=== PATIENT | female | born 1945 | race Caucasian/White ===

== ENCOUNTER 2019-12-22 05:21 | Inpatient (IN) ==
--- NOTE | 2019-12-22 05:49 | PROVIDER DOCUMENTATION ---
HPI-Respiratory General - General Chief Complaint: Shortness of Breath Stated Complaint: sob Time Seen by Provider: 12/22/19 05:37 Source: patient Allergies/Adverse Reactions: Patient Allergies Allergy/AdvReac Type Severity Reaction Status Date / Time buprenorphine HCl * Allergy Intermediate Unknown Verified 12/22/19 06:30 [From Buprenex] meperidine HCl * Allergy Intermediate Unknown Verified 12/22/19 06:30 [From Mepergan] methotrexate Allergy Intermediate Unknown Verified 12/22/19 06:30 promethazine HCl * Allergy Intermediate Unknown Verified 12/22/19 06:30 [From Mepergan] morphine Allergy Mild Unknown Verified 12/22/19 06:30 azathioprine [From Imuran] Allergy Unknown Verified 12/22/19 06:30 azathioprine sodium * Allergy Unknown Verified 12/22/19 06:30 [From Imuran] ketorolac tromethamine * Allergy Unknown Verified 12/22/19 06:30 [From Toradol] triazolam [From Halcion] AdvReac Intermediate Unknown Verified 12/22/19 06:30 Home Medications: Home Medication List Medication Instructions Recorded Confirmed Last Taken Type Sodium Polystyrene Sulfonate 15 gm PO 10/03/13 10/03/13 09/05/13 08:00 History [Kionex] - History of Present Illness-Resp Nature of Presenting Problem: Patient presents via EMS with the complaint of sob x 2-3 days. Notes that she started having a productive cough and sob worsened during the night. Notes subjective fever and chills. No known sick contacts. Quality of Pain: reports: none Severity in ED: reports: moderate Onset/Duration: reports: 3 days ago Timing: reports: getting worse Context: reports: recent URI Exposure: reports: unknown cause Cough Quality/Degree: reports: moderate, productive cough Modifying Factors: improves with: exertion, coughing Associated Symptoms: reports: cough Similar Symptoms Previously?: No Recently seen or treated by another doctor?: No Review of Systems - Adult - REVIEW OF SYSTEMS - ADULT Constitutional: reports: no symptoms reported Eyes: reports: no symptoms reported Ears, Nose, Mouth & Throat: reports: no symptoms reported Cardiovascular: reports: no symptoms reported Respiratory: reports: see HPI Gastrointestinal: reports: no symptoms reported Genitourinary: reports: no symptoms reported Musculoskeletal: reports: no symptoms reported Integumentary: reports: no symptoms reported Neurological: reports: no symptoms reported Psychiatric: reports: no symptoms reported Endocrine: reports: no symptoms reported Hematologic/Lymphatic: reports: no symptoms reported Allergic/Immunologic: reports: no symptoms reported All Other Systems: Reviewed and Negative Past History - Adult - PAST MEDICAL HISTORY-ADULT Review of Records: reports: Old Records Reviewed, Nursing Assessment Review, Medications Reviewed, Social history reviewed & non-contributory. Major Childhood Illnesses: reports: denies history Cardiovascular: reports: arrhythmia Respiratory: reports: denies history Gastrointestinal: reports: Crohn's Obstetrical/Gynecological: reports: denies history Genitourinary: reports: denies history Musculoskeletal: reports: neck/back injury Neurological: reports: denies history Endocrine/Immune: reports: Diabetes Other Conditions: reports: denies history - IMMUNIZATION STATUS Childhood Immunizations: See Nurse Assessment Flu Vaccine: See Nurse Assessment - FAMILY HISTORY Family History: reviewed, not pertinent Physical Exam-General - PHYSICAL EXAM-ADULT Initial Vital Signs Reviewed: Yes - CONSTITUTIONAL General Appearance: alert, moderate distress - EYES Eyes: PERRL/EOMI - HEAD, EARS, NOSE, MOUTH & THROAT HENMT: normocephalic/atraumatic, moist mucous membranes, normal ENT inspection - NECK Neck: non-tender - RESPIRATORY Respiratory: chest non-tender, lungs clear, rales, rhonchi - CARDIOVASCULAR Cardiovascular: tachycardia, irregularly irregular - GASTROINTESTINAL (ABDOMEN) Abdominal Exam: normal bowel sounds, non tender - LYMPHATIC Lymphatic: no adenopathy - MUSCULOSKELETAL Back Exam: no vertebral tenderness Progress - PLAN OF CARE/RESULTS Progress/Plan/Lab Results: Vital Signs - 8 hr 12/22/19 05:40 12/22/19 06:34 12/22/19 07:05 Temperature 97.8 F Pulse Rate 110 H 103 H Respiratory Rate 32 H 29 H Blood Pressure 190/103 188/107 138/78 O2 Sat by Pulse Oximetry 92 L 92 L 12/22/19 06:15 Influenza Screen - Final Nasopharyngeal Laboratory Results - last 24 hr 12/22/19 12/22/19 12/22/19 05:14 05:44 05:44 WBC RBC Hgb Hct MCV MCH MCHC RDW Std Deviation Plt Count MPV Immature Gran % (Auto) Neut % (Auto) Lymph % (Auto) Pine % (Auto) Eos % (Auto) Baso % (Auto) Immature Gran # (Auto) Neut # (Auto) Lymph # (Auto) Pine # (Auto) Eos # (Auto) Baso # (Auto) PT INR PTT (Actin FS) Sodium 135 L Potassium 5.2 H Chloride 94 L Carbon Dioxide 22 L Anion Gap 19 BUN 48 H Creatinine 4.5 H Estimated GFR/1.73 m2 10 BUN/Creatinine Ratio 11 Glucose 476 H* Calculated Osmolality 304 Calcium 9.0 Total Bilirubin 0.60 AST 19 ALT 11 Alkaline Phosphatase 143 H Creatine Kinase 28 Troponin T High Sens [id number] Pept 14069 H Total Protein 8.0 Albumin 4.1 Globulin 3.9 Albumin/Globulin Ratio 1.1 Plasma Lactate 3.9 H 12/22/19 12/22/19 12/22/19 05:44 05:44 05:44 WBC 15.91 H RBC 4.30 Hgb 11.6 L Hct 39.7 MCV 92.3 MCH 27.0 MCHC 29.2 L RDW Std Deviation 17.1 H Plt Count 358 MPV 9.1 Immature Gran % (Auto) 0.5 Neut % (Auto) 85.7 H Lymph % (Auto) 9.1 L Pine % (Auto) 4.2 Eos % (Auto) 0.1 Baso % (Auto) 0.4 Immature Gran # (Auto) 0.08 H Neut # (Auto) 13.65 H Lymph # (Auto) 1.44 Pine # (Auto) 0.67 H Eos # (Auto) 0.01 Baso # (Auto) 0.06 PT 13.3 INR 1.00 PTT (Actin FS) 33.7 Sodium Potassium Chloride Carbon Dioxide Anion Gap BUN Creatinine Estimated GFR/1.73 m2 BUN/Creatinine Ratio Glucose Calculated Osmolality Calcium Total Bilirubin AST ALT Alkaline Phosphatase Creatine Kinase Troponin T High Sens 58 H [id number] Pept Total Protein Albumin Globulin Albumin/Globulin Ratio Plasma Lactate Orders Category Date Time Status Cardiac Monitoring NOW Care 12/22/19 07:08 Active IV Insertion NOW Care 12/22/19 07:08 Completed NEWS Score >or=5:Order NEWS Bundle S.O. NOW Care 12/22/19 05:46 Active Notify Provider of NEWS Score NOW Care 12/22/19 07:08 Active CHEST-1 VIEW [RAD] Stat Exams 12/22/19 05:38 Completed BLOOD CULTURE [BLDCUL] Stat Lab 12/22/19 05:50 Results CBC WITH ELECTRONIC DIFF [HEME] Stat Lab 12/22/19 05:44 Completed CK PROFILE [SP CHEM] Stat Lab 12/22/19 05:44 Completed COMPREHENSIVE METABOLIC PANEL [CHEM] Stat Lab 12/22/19 05:44 Completed INFLUENZA SCREEN A/B Stat Lab 12/22/19 06:15 Completed LACTATE, PLASMA [CHEM] Lab 12/22/19 09:00 Uncollected LACTATE, PLASMA [CHEM] Lab 12/22/19 12:00 Uncollected LACTATE, PLASMA [CHEM] Q3H Lab 12/22/19 05:14 Completed MISCELLANEOUS TEST-LAB [RF] Stat Lab 12/22/19 08:23 Uncollected PRO B-NATRIURETIC PEPTIDE Stat Lab 12/22/19 05:44 Completed PROTIME WITH INR [COAG] Stat Lab 12/22/19 05:44 Completed PTT [COAG] Stat Lab 12/22/19 05:44 Completed TROPONIN T HIGH SENSITIVITY Stat Lab 12/22/19 05:44 Completed URINALYSIS W/POSS RFLX CULT [URINALYSIS] Stat Lab 12/22/19 07:08 Uncollected 0.9% Sodium Chloride Inj [Ns] 1,000 ml Med 12/22/19 08:23 Active IV 999 mls/hr Diltiazem [Cardizem] Med 12/22/19 06:42 Discontinued 10 mg IV NOW ONE Furosemide [Lasix] Med 12/22/19 08:25 Discontinued 20 mg IV NOW ONE Pharmacy Order [Vancomycin IV Per Pharmacy] Med 12/22/19 08:30 Ordered 1 each MISC DIRECTED Piperacillin/Tazobactam [Zosyn] 2.25 gm Med 12/22/19 08:24 Active 0.9% Sodium Chloride Inj [Ns] 50 ml IV NOW Piperacillin/Tazobactam [Zosyn] 4.5 gm Med 12/22/19 08:23 Discontinued 0.9% Sodium Chloride Inj [Ns] 100 ml IV NOW Vancomycin 1 gm/Ns Med 12/22/19 08:23 Discontinued 1 gm in 250 ml IV NOW O2 Per Protocol Stat Oth 12/22/19 07:08 Active EKG [EKG] Stat Ther 12/22/19 05:34 Draft Result Diagrams: 12/22/19 05:44 12/22/19 05:44 - REASSESSMENT Reassessment #1 Time Reassessed: 08:32 Status: improving (Seen and examined by me. Case discussed with Dr. Murcia at shift change. Patient appears to have uncontrolled DM, acute on chronic renal failure, sepsis, pneumonia and volume overload, dialyzes q MWF. Likely needs dialysis today, has sepsis with pneumonia, so will admit. Have ordered Vanc and zosyn.) Reassessment Comment: She was given Cardizem 10mg by Dr. Murcia - EKG 1 Time of EKG reading by physician:: 07:00 (originally read by Dr. Murcia, but not documented at 0536) EKG Read and Signed by:: Tarun Fulton EKG Interpretation (*Must complete 3 of following elements*): Abnormal Rate: 115 Rhythm: sinus tachycardia [place]: normal QRS: LVH VA Interval: normal ST Wave: non-specific ST changes - XRAY 1 XRAY Study: Chest Impression: Abnormal, See EMR Report ( EXAM: CHEST-1 VIEW 12/22/2019 HISTORY: chest pain TECHNIQUE: AP portable at 0544 COMMENT: There is cardiomegaly increased pulmonary vascularity and interstitial and alveolar opacity particularly in the lung bases and particularly in the left retrocardiac and cardiophrenic angle regions. There are no previous studies. IMPRESSION: Cardiomegaly and pulmonary edema plus minus pneumonia. Electronically signed by Shorty Arora 12/22/2019 6:56 AM 12/22/19 0656 Interpreting Physician: Shorty Arora MD Dictated Date/Time: 12/22/19 0655 cc: Shima Murcia MD;) - CONSULTS/PCP/HOSPITALIST Notification #1 *Consult/PCP/Hospitalist*: TRESA Flanagan, paged at 0830 Time Discussed: 08:41 Reason/Comments: admit to [facility] Consult Disposition: Admit #2 Consult: Tomas paged at 0836 - CHANGE OF SHIFT REPORT (ED Provider) 1 Report Given and Care Transferred to:: Dr. Fulton Time of Transfer: 07:00 Items Pending: Labs, XRAY Results Departure - Departure Date of Disposition Decision: 12/22/19 Time of Disposition Decision: 08:36 DIAGNOSIS: ESRD on hemodialysis Bilateral pneumonia Qualifiers: Pneumonia type: due to unspecified organism Lung location: unspecified part of lung Qualified Code(s): J18.9 - Pneumonia, unspecified organism Sepsis with acute organ dysfunction Qualifiers: Sepsis type: sepsis due to unspecified organism Acute renal failure type: unspecified Severe sepsis shock status: without septic shock Volume overload Qualifiers: Hypervolemia type: other Qualified Code(s): E87.79 - Other fluid overload Disposition: ADMITTED INPATIENT 09 Certified Medical Emergency: Emergent Condition: Serious Referrals and Follow-Ups: None,PCP [NON-STAFF PROVIDER] - - Critical Care Note This patient required my direct & personal management of CC.: Yes Total Time (mins): 40 Critical Care Statement: This patient required my direct personal management to treat or rule out processes, the absence of which, could potentiallly result in sudden, clinically significant life or limb threatening deterioration. Attestation - Physician/ JEFFERSON Attestation Patient care was provided by Advanced Practice Provider:: No The physician spent face to face time with patient:: Yes Advanced Practice Provider documentation review:: Supervising physician onsite and consulted in the evaluation and care of this patient. The physician did have a face to face encounter with the patient.
[2019-12-22 05:58] LABS: BASO# 0.06 X1000 (0.0-0.2); BASO% 0.4 % (0.0-0.8); EOS# 0.01 X1000 (0.0-0.7); EOS% 0.1 % (0.0-10.0); HEMATOCRIT 39.7 % (37.0-47.0); HEMOGLOBIN 11.6 g/dL (12.0-16.0); IMM GRAN# 0.08 X1000 (0.0-0.04); IMM GRAN% 0.5 % (0.0-0.5); LYMPH# 1.44 X1000 (1.2-3.4); LYMPH% 9.1 % (20.5-51.1); MCHC 29.2 g/dL (33-37); MCV 92.3 FL (81-99); MONO# 0.67 X1000 (0.11-0.59); MONO% 4.2 % (1.7-9.3); MPV 9.1 FL (7.4-10.4); NEUT# 13.65 X1000 (1.4-6.5); NEUT% 85.7 % (42.2-75.2); PLT 358 X1000 (130-400); RDW 17.1 % (11.5-14.5); WBC 15.91 X1000 (4.8-10.8)
[2019-12-22 06:04] LABS: PROTIME 13.3 Seconds (11.0-16.0)
[2019-12-22 06:05] LABS: PTT 33.7 Seconds (22.3-41.8)
[2019-12-22 06:41] LABS: ALB/GLOB RATIO 1.1; ALBUMIN 4.1 g/dL (3.5-5.0); CREATININE 4.5 mg/dL (0.5-0.9); POTASSIUM 5.2 mmol/L (3.5-5.1); TOTAL BILIRUBIN 0.6 mg/dL (0.20-1.00)
[2019-12-22] MEDS ORDERED: CARDIZEM IV ONE (06:42)
--- NOTE | 2019-12-22 06:58 | Diag Imaging Result Doc PS360 ---
EXAM: CHEST-1 VIEW 12/22/2019 HISTORY: chest pain TECHNIQUE: AP portable at 0544 COMMENT: There is cardiomegaly increased pulmonary vascularity and interstitial and alveolar opacity particularly in the lung bases and particularly in the left retrocardiac and cardiophrenic angle regions. There are no previous studies. IMPRESSION: Cardiomegaly and pulmonary edema plus minus pneumonia. Electronically signed by Shorty Arora 12/22/2019 6:56 AM
--- NOTE | 2019-12-22 07:57 | EKG Report ---
Test Performed on : 12/22/2019 05:34:57 AM Test Reason : SOB Blood Pressure : / mmHG Vent. Rate : 115 BPM Atrial Rate : 115 BPM P-R Int : 168 ms QRS Dur : 090 ms QT Int : 342 ms P-R-T Axes : 064 017 112 degrees QTc Int : 473 ms Sinus tachycardia. Left ventricular hypertrophy with repolarization abnormality Abnormal ECG No previous ECGs available Unconfirmed Result
[2019-12-22] MEDS ORDERED: NS 1,000 ML IV ONE ×2 (08:23→08:34)
[2019-12-22] MEDS ORDERED: VANCOMYCIN 1 GM/NS 1 GM/250 ML IVPB IV ONE ×3 (08:23→17:00)
[2019-12-22] MEDS ORDERED: ZOSYN 4.5 GM in NS 100 ML IV ONE (08:23)
[2019-12-22] MEDS ORDERED: ZOSYN 2.25 GM in NS 50 ML IV ONE (08:24)
[2019-12-22] MEDS ORDERED: LASIX IV ONE (08:25)
[2019-12-22] MEDS ORDERED: VANCOMYCIN IV PER PHARMACY MISC SCH ×2 (08:30→12:27)
[2019-12-22] MEDS ORDERED: NITROGLYCERIN TOP ONE (08:38)
[2019-12-22 08:57] LABS: URINE SOURCE CATH
[2019-12-22] MEDS ORDERED: HUMULIN R IV ONE (09:01)
[2019-12-22] MEDS ORDERED: NS 2,000 ML MISC PRN (09:10)
[2019-12-22 09:14] LABS: BILIRUBIN URINE NEGATIVE (NEGATIVE); BLOOD URINE SMALL (NEGATIVE); COLOR YELLOW; GLUCOSE URINE >1000 mg/dL (NEGATIVE); KETONE URINE NEGATIVE (NEGATIVE); LEUKOCYTES URINE LARGE (NEGATIVE); NITRITE URINE NEGATIVE (NEGATIVE); PROTEIN URINE 300 mg/dL (NEGATIVE); TURBIDITY URINE HAZY (CLEAR); UROBILINOGEN URINE NORMAL (NORMAL)
[2019-12-22 09:16] LABS: UR EPITHELIAL CELLS >10 /HPF (<10); URINE BACTERIA NEGATIVE /HPF; URINE WBC TNTC /HPF (<10)
--- NOTE | 2019-12-22 09:36 | HISTORY AND PHYSICAL ---
PRIMARY CARE PHYSICIAN: Dr. Andrzej Gonzalez. CHIEF COMPLAINT: A sudden onset of shortness of breath last night with a productive cough and diaphoresis. HISTORY OF PRESENTING ILLNESS: This is a 74-year-old female, who [facility] with complaints of a sudden onset of shortness of breath that began last night. Also states she has had a productive cough and diaphoresis. Denied any fever or chills. States she has not had any sick contacts. She has only been going to her dialysis on Friday, Friday, Friday. When she arrived she was satting 92 percent on a 15 L mask, now on a non-rebreather, satting 92 to 94 percent. Her workup showed a white blood cell count of 15.91. Her BUN was 48 with a creatinine of 4.5. Her glucose was 476. Her proBNP was 29,271. Her plasma lactate was 3.9. Urinalysis is still pending. Her chest x- ray shows cardiomegaly and pulmonary edema plus or minus pneumonia in the lung bases and left regions. So, she will be admitted to the PVC unit. She is a suspected COVID-19, and will be tested for that as well. PAST MEDICAL HISTORY: Crohn disease, diabetes type 2, mitral valve prolapse and [place], anemia and end-stage renal disease with dialysis on Friday, Friday, Friday. PAST SURGICAL HISTORY: Cholecystectomy, total hip, bilateral tubal ligation, a colon resection, cataract and carpal tunnel release. FAMILY HISTORY: Reviewed and noncontributory. SOCIAL HISTORY: She currently lives alone. Denies any tobacco, alcohol or illicit drug use. ALLERGIES: To Buprenex, meperidine, methotrexate, promethazine, morphine, Imuran, Toradol and Halcion. HOME MEDICATIONS: A current list will need to be obtained, reconciled, reviewed and restarted as appropriate. We will place an order for nursing to update and confirm home medications. LABORATORY DATA: Showed a white blood cell count of 15.91, hemoglobin 11.6, hematocrit 39.7, platelets 358. PT and INR of 13.3 and 1.0. Sodium 135, potassium 5.2, chloride 94, CO2 22. BUN of 48, creatinine 4.5, glucose 476. ProBNP of 29,271. Cardiac enzymes were negative. Plasma lactate of 3.9. Urinalysis is pending. IMAGING STUDIES: EKG showed sinus tachycardia at 115. Chest x-ray showed cardiomegaly and pulmonary edema plus or minus pneumonia in the lung bases. REVIEW OF SYSTEMS: She denies any fever, chills, blurred vision, dizziness, chest pain. She has had a productive cough, shortness of breath. Denies any abdominal pain, constipation, diarrhea, nausea, vomiting, burning or hurting with urination. PHYSICAL EXAMINATION: VITAL SIGNS: On arrival she had a temperature of 97.8 degrees, pulse 110, respirations 32, blood pressure was 190/103, satting 92% on a 15% mask. Currently she is on a 15% non- rebreather, satting 92 to 94 percent. GENERAL: This is a 74-year-old female, who is sitting up in the bed and answers questions appropriately. HEENT: Normocephalic, atraumatic. Normal ENT inspection. Oropharynx and nares are clear. EYES: Pupils are equal, round, and reactive to light and accommodation. Extraocular movements are intact. NECK: Normal inspection. Normal range of motion. LUNGS: With rales and rhonchi bilaterally. Equal lung expansion. Chest wall movement is noted. O2 via non-rebreather currently in use. HEART: Irregular rate and rhythm; is noted to have some tachycardia also with no murmurs, rubs or gallops. ABDOMEN: Soft, nontender, nondistended. Bowel sounds are present x4 quadrants. MUSCULOSKELETAL: She moves all extremities well. NEUROLOGICAL: The cranial nerves 2-12 appear grossly intact. ASSESSMENT: 1. Sepsis. 2. Bilateral lower lobe pneumonia. 3. Pulmonary edema with cardiomegaly. 4. Leukocytosis. 5. Diabetes type 2 with hyperglycemia. 6. Suspect Coronavirus Disease 2019. PLAN: She will be admitted to the PVC unit, placed on telemetry. O2 per protocol. Diabetic diet. Pattern blood sugars with sliding scale insulin. We will consult Nephrology for her dialysis, and she does need dialysis today. We will check an echocardiogram. We will place her on vancomycin per pharmacy protocol, and Zosyn 3.375 g IV q. 6 hours. She received Lasix 20 mg IV x1 in the emergency room. I am going to hold off on continuing that and let Nephrology do their dialysis first and see if that improves with her breathing and pulmonary edema. We will check a hemoglobin A1c. We need to update and confirm home medications. Further orders after seen by attending and by strategy execution consultant. Dictated by TRESA Culver for Javan Newell MD Addendum: Patient seen and examined by myself. Agree with TRESA note. It reflects my assessment and plan. Patient is being admitted to hospital for acute respiratory failure secondary to bilateral pneumonia. Will start broad spectrum antibiotics and oxygen supplementation. Will check COVID19 and maintain patient on isolation. Will monitor patient closely. cc: TRESA Culver MD Charles D Coffey, MD [facility]
[2019-12-22] MEDS ORDERED: VANCOMYCIN 1 GM/NS 1 GM/250 ML IVPB IV SCH ×2 (09:45→13:00)
[2019-12-22 09:59] LABS: HEMOGLOBIN A1C 6.5 % (4.8-6.0)
--- NOTE | 2019-12-22 10:50 | NEPHROLOGY CONSULTATION ---
DATE: 12/22/2019 REASON FOR CONSULTATION: Chronic kidney disease 5D and assistance with management of pneumonia and heart failure. CONSULTING PHYSICIAN: Dr. Fulton HISTORY OF PRESENT ILLNESS: Ms. Neil Wagoner is a 74-year-old white female with a history of ankylosing spondylitis. No lung disease that she is aware of. She also has CKD-5D, diabetes, peripheral vascular disease, chronic pain. Ms. Wagoner has ESRD and receives hemodialysis every Friday, Friday, Friday at the clinic in [place]. She states that she was in her usual health until last evening when she began to become ill. She states that she walked to the kitchen to cleanup and had an episode that was presyncopal. Sensation of losing consciousness led her to sit down promptly. She had no fall and no injury. Subsequent to that, she began having palpitations, sensation of tachycardia. Progressed to worsening shortness of breath and she could "hear herself breathing." These symptoms worsened through the night, but waxed and waned in severity. Ultimately at around 4 a.m. she activated emergency services to be transported to the hospital. To her knowledge, she has not been around anyone else who is sick. She does attend dialysis 3 times a week obviously. No chills or fevers. No sweats or night sweats. She did have some sharp right-sided chest discomfort on the way to the hospital. She has been eating well. No nausea or vomiting. Minimal swelling. No problems with her dialysis of late. PAST MEDICAL HISTORY: As above, diabetes and hypertension. HOME MEDICATIONS: Her home medications have not yet been identified. ALLERGIES: Include Buprenex, meperidine, promethazine, morphine, azathioprine, ketorolac, triazolam. SOCIAL HISTORY: She lives alone, . No alcohol or tobacco. FAMILY HISTORY: Noncontributory. REVIEW OF SYSTEMS: Noncontributory. PHYSICAL EXAMINATION: Vital Signs: Blood pressure 138/78, heart rate 95, respirations 29, afebrile. General: An elderly woman, sitting in bed, with a closed face mask. She is awake, alert, not in distress. Skin: Warm and dry. HEENT: Conjunctivae are pink. Pupils are equal. Oropharynx not examined. Neck: The neck veins are not distended. Trachea is midline. Cervical spine is rigid. Cardiac: PMI nondisplaced. Regular rate and rhythm. Tachycardia. Soft murmur. Lungs: Equal. Few scattered wheezes and crackles bilaterally. No retractions. Increased respiratory rate. Abdomen: Soft, nontender. Bowel sounds are present. No palpable organomegaly, masses, bruits. Extremities: Trace edema. No clubbing or cyanosis. Neurologic: Nonfocal. IMPRESSION AND PLAN: Severe shortness of breath. Chest x-ray read as "cardiomegaly, increased pulmonary vascularity and interstitial and alveolar opacity," edema plus/minus pneumonia. We will dialyze her this morning and target 3 to 4 liters ultrafiltration. Repeat chest x-ray thereafter. We will seek an old chest x-ray. She is being screened for viral pneumonias and treated with empiric vancomycin and Zosyn. cc: Dalton Marin MD MTDD
[2019-12-22] MEDS ORDERED: TYLENOL PO PRN (12:27)
--- NOTE | 2019-12-22 16:07 | ECHO REPORT ---
ORDER DATE: 12/22/2019 INTERPRETING PHYSICIAN: Ambrosio Rojas MD. CLINICAL INDICATIONS: Dyspnea, end-stage renal disease. M-MODE MEASUREMENTS: Left ventricle end diastole: 5.3 cm. Left ventricle end systole: 4.4 cm. Posterior wall: 1.0 cm. Interventricular septum: 0.9 cm. Left atrium: 4.8 cm. Aortic diameter: 3.5 cm. SUMMARY OF 2-DIMENSIONAL IMAGIN. The left ventricular function is moderately impaired. Global ejection fraction estimated at 35%. 2. There is akinesis of the mid to apical septum, the distal lateral wall, the mid to apical anterior and anteroseptal segment, and the distal inferior wall. Also, the mid to distal posterior wall appears to be impaired. This may suggest the possibility of takotsubo cardiomyopathy versus severe coronary heart disease. 3. The right-sided chambers do not appear to be dilated. 4. The aortic valve has 3 cusps, they open normally. 5. The mitral valve shows some calcification. Color flow mapping was not used in this case. 6. There is a right pleural effusion. I do not see pericardial effusion. 7. The pulmonic valve was suboptimally visualized. 8. The tricuspid valve looks grossly normal. 9. The left atrium is probably mildly enlarged. Clinical correlation is strongly recommended. Consider evaluation for coronary heart disease. cc: MD Javan Mast MD
[2019-12-22] MEDS: ZOSYN 3.375 GM in NS 50 ML IV SCH ×2 (16:24→20:59)
[2019-12-22] MEDS: HUMALOG SUBQ SCH ×3 (16:24→20:55)
[2019-12-23] MEDS: ZOSYN 3.375 GM in NS 50 ML IV SCH ×4 (03:24→21:06)
[2019-12-23] MEDS: HUMALOG SUBQ SCH ×4 (06:07→21:06)
[2019-12-23] MEDS ORDERED: VANCOMYCIN 1 GM/NS 1 GM/250 ML IVPB IV SCH (07:30)
[2019-12-23] MEDS: TYLENOL PO PRN ×3 (08:21→21:06)
[2019-12-23 09:02] LABS: BASO% 1.4 % (0.0-0.8); EOS# 0.07 X1000 (0.0-0.7); EOS% 0.5 % (0.0-10.0); HEMATOCRIT 38.8 % (37.0-47.0); HEMOGLOBIN 11.5 g/dL (12.0-16.0); IMM GRAN# 0.06 X1000 (0.0-0.04); IMM GRAN% 0.4 % (0.0-0.5); LYMPH# 2.22 X1000 (1.2-3.4); LYMPH% 15.2 % (20.5-51.1); MCH 27.1 PG (27-31); MCHC 29.6 g/dL (33-37); MCV 91.5 FL (81-99); MONO# 1.44 X1000 (0.11-0.59); MONO% 9.9 % (1.7-9.3); MPV 9.2 FL (7.4-10.4); NEUT# 10.61 X1000 (1.4-6.5); NEUT% 72.6 % (42.2-75.2); PLT 275 X1000 (130-400); RBC 4.24 XMIL (4.2-5.4); RDW 16.9 % (11.5-14.5)
--- NOTE | 2019-12-23 09:22 | Diag Imaging Result Doc PS360 ---
EXAM: CHEST-PORTABLE HISTORY: reassess infiltrates after dialysis TECHNIQUE: Single view COMPARISON: 12/22/2019 FINDINGS: There is a small left pleural effusion. There is atelectasis in left qing and may be an underlying infiltrate. Pulmonary edema is less prominent on the current exam. Cardiomegaly remains. IMPRESSION: Interval improvement Electronically signed by Emir Cho 12/23/2019 9:20 AM
[2019-12-23 09:29] LABS: CALCIUM 9.6 mg/dL (8.8-10.2); CREATININE 3.5 mg/dL (0.5-0.9)
--- NOTE | 2019-12-23 10:27 | NEPHROLOGY PROGRESS NOTE ---
DATE: 12/23/2019 SUBJECTIVE: She states she is some better today, but her symptoms are not resolved. She is still requiring 5 L nasal cannula oxygen. No chest pain, palpitation. OBJECTIVE: General: No acute distress. Vital Signs: Blood pressure 120/70, heart rate 96, respirations 16, afebrile. IMAGING: Chest x-ray is significantly improved after dialysis yesterday. IMPRESSION: Shortness of breath, likely pulmonary edema. We will perform a 2-hour hemofiltration only treatment today with a goal of another 2 to 4 liters of ultrafiltration, and then schedule her routine dialysis treatment tomorrow. Adjust her outpatient dry weight based on these treatments. Repeat her chest x-ray tomorrow. cc: Dalton Marin MD
[2019-12-23] MEDS ORDERED: NS 2,000 ML MISC PRN (11:21)
[2019-12-23] MEDS ORDERED: NS 1,000 ML IV PRN (11:21)
[2019-12-23] MEDS ORDERED: EMLA CREAM TOP PRN (11:49)
[2019-12-23] MEDS ORDERED: VANCOMYCIN 1 GM/NS 1 GM/250 ML IVPB IV ONE (17:00)
[2019-12-23] MEDS ORDERED: LASIX PO SCH (17:15)
[2019-12-23] MEDS: TUMS PO SCH (18:09)
--- NOTE | 2019-12-23 18:25 | PROGRESS NOTE ---
DATE: 12/23/2019 SUBJECTIVE: I have seen and examined Ms. Wagoner today. She refers to be doing a lot better. She said she felt a whole lot better after she had her ultrafiltration. Today was the 2nd time. OBJECTIVE: Vital signs: Blood pressure is 98/51, pulse of 83, respirations 21, temperature 97.5 degrees. The patient is saturating 98 percent on 5 L. General: Ms. Wagoner is a 74-year-old female. She is in bed, in no distress. HEENT: Mucosa is pink and moist. Anicteric. Acyanotic. Neck: Supple. Chest: Good air entry bilaterally. A few crackles posteriorly. Patient has an AV fistula on the left arm. Abdomen: Soft, nontender. Bowel sounds present. Extremities: No pedal edema. FIELD SERVICE REPRESENTATIVE: Patient is awake, alert, and oriented. LABORATORY DATA: Has been reviewed. WBC is 14.60. Hemoglobin is also reviewed, consistent with renal failure. So far, blood cultures are still pending. Influenza screening was negative. Coronavirus disease-19 is also negative. ASSESSMENT: 1. Acute hypoxemic respiratory failure. We think it is a combination of pulmonary edema and superimposed pneumonia. Patient is on antimicrobial coverage. 2. Endstage renal disease. The patient is on hemodialysis Friday, Friday, and Friday. She has had 2 sessions during yesterday and today. 3. Diabetes mellitus. The patient is on insulin regimen. In general, we are going to continue with the Zosyn and vancomycin renally dosed. We will start the patient back on her home medications. We are pending the final culture report on the blood. We will re-evaluate her in the morning. cc: Ty Davis MD
[2019-12-23] MEDS: PREDNISONE PO SCH (21:06)
--- NOTE | 2019-12-23 21:35 | Diag Imaging Result Doc PS360 ---
EXAM: US RENAL 2 (RETROPER) COMPLETE HISTORY: fluid volume shift/ dialysis TECHNIQUE: Renal ultrasound COMPARISON: 06/11/2013 FINDINGS: The right kidney measures 9.1 x 4.7 x 3.0 cm. The left kidney measures 9.0 x 4.8 x 5.1 cm. There is cortical thinning and increased renal echotexture. There are bilateral renal stones. No hydronephrosis. IMPRESSION: Increased renal echotexture with cortical thinning consistent with medical renal disease. Electronically signed by Emir Cho 12/23/2019 9:33 PM
[2019-12-24] MEDS: ZOSYN 3.375 GM in NS 50 ML IV SCH ×3 (01:52→21:05)
[2019-12-24] MEDS: HUMALOG SUBQ SCH ×4 (06:27→21:05)
[2019-12-24] MEDS: TYLENOL PO PRN ×3 (06:27→18:00)
[2019-12-24] MEDS ORDERED: NS 2,000 ML MISC PRN (07:43)
--- NOTE | 2019-12-24 08:41 | Diag Imaging Result Doc PS360 ---
EXAM: CHEST-PORTABLE HISTORY: reassess pulmonary edema TECHNIQUE: Single view COMPARISON: 12/23/2019 FINDINGS: The lungs are better expanded on the current exam. Cardiomegaly remains. Mild pulmonary edema persists. The left pleural effusion is smaller. Infiltrates or atelectasis in left base are less pronounced. IMPRESSION: Interval improvement Electronically signed by Emir Cho 12/24/2019 8:38 AM
[2019-12-24] MEDS ORDERED: TENORMIN PO SCH (09:00)
[2019-12-24] MEDS: TUMS PO SCH ×3 (09:59→18:00)
--- NOTE | 2019-12-24 11:43 | NEPHROLOGY PROGRESS NOTE ---
DATE: 12/24/2019 SUBJECTIVE: She states she is not much different than yesterday. Still requiring nasal cannula oxygen. OBJECTIVE: Vital Signs: Blood pressure 127/60, heart rate 85, respirations 17, afebrile. General: No acute distress. Skin: Somewhat pale. Neck: Veins are approximately 6 cm while on dialysis. Extremities: Minimal edema. IMPRESSION AND PLAN: 1. Chronic kidney disease 5D. Today is her routine dialysis today. 2. Respiratory failure. She has responded significantly to ultrafiltration. Chest x-ray is improved but not cleared. She did have wall motion abnormalities on her echocardiogram and she has a history of coronary disease. I will ask Cardiology to see her today. We will decrease her dry weight based on her treatment today. 3. Electrolytes/acid base. Acceptable. 4. Anemia, in target. 5. Hypertension, in target. cc: Dalton Marin MD
--- NOTE | 2019-12-24 12:26 | CARDIOLOGY CONSULTATION ---
DATE: 12/24/2019 REASON FOR CONSULTATION: Cardiology was consulted for left ventricular dysfunction, shortness of breath. HISTORY OF PRESENT ILLNESS: Ms Wagoner is a 74-year-old lady who has significant cardiac history with multiple stents, GI bleeding, ankylosing spondylitis, has end-stage renal disease and is receiving hemodialysis every Friday, Friday, Friday at the clinic in [place]. She has been on dialysis since 2017. She was in her usual state of health. She became weak and short of breath walking in the kitchen and had an episode where she was dizzy, had to sit down, but no nader syncopal episode. She was also noted some palpitations during that episode and some tightness in her chest. She came to the emergency room and was noted to have cardiomegaly with pulmonary edema plus/minus pneumonia. She was also tested for COVID, which is negative. She has been started on antibiotics, and an echocardiogram was done, which revealed ejection fraction of 30% to 35%. Prior to these episodes, the patient had been doing reasonably well, was living independently. She has also noticed some minimal swelling in her legs. There are no fevers or chills. REVIEW OF SYSTEMS: A 14-point review of system was done.Gastrointestinal System: Patient has ongoing issues of low-grade GI bleed from time to time. She states that she has been started on medications for her ankylosing spondylitis. However, that has helped her episodes of GI bleed from chronic Crohn disease and did not improve her ankylosing spondylitis. Central Nervous System: No focal weakness to suggest a CVA, TIA. Genitourinary System: There is no dysuria or hematuria. Respiratory System: There is no history of cough or fevers. PAST MEDICAL HISTORY: 1. Paroxysmal supraventricular tachycardia. 2. Coronary artery disease. Last cardiac catheterization on 11/02/2004, LAD 50% and 90% stenosis treated with a drug-eluting stent to the distal disease, 90% circumflex was also treated with a drug-eluting stent at that time. 3. Intolerant to aspirin and Plavix, as the patient has had severe recurrent GI bleed, has undergone partial colectomy, and is a poor candidate for restenting due to history of GI bleeding on dual antiplatelet therapy and on single antiplatelet therapy has had intermittent episodes of bleeding despite colonic resection in 2003. She was diagnosed to have Crohn disease in 2013. 4. Bilateral minimal carotid disease. 5. Hypertension. 6. Diabetes. 7. End-stage renal disease on dialysis since 2017. 8. Hypomagnesemia in the past. 9. Hypokalemia in the past. 10. Ankylosing spondylitis. 11. Crohn disease. 12. Adverse effects to aspirin with severe rectal bleeding. PAST SURGICAL HISTORY: 1. Cholecystectomy. 2. Total hip. 3. Bilateral tubal ligation. 4. Colonic resection. 5. Cataract surgery. 6. Carpal tunnel release. HOME MEDICATIONS/CURRENT MEDICATIONS: Her home medications include atenolol 25 mg a day, folic acid, glipizide 2.5 mg daily, Lasix 20 mg a day, loratadine 10, glipizide 5, prednisone as directed, calcium carbonate, and also she has been on Cosentyx for her ankylosing spondylitis. Her current medications also include antibiotics of Zosyn and vancomycin. ALLERGIES: She is allergic to tramadol, Imuran, methotrexate, morphine, Buprenex, Remicade, and aspirin-related and Plavix-related bleeding. SOCIAL HISTORY: She does not smoke, does not drink. There is no history of alcohol abuse. FAMILY HISTORY: Noncontributory. PHYSICAL EXAMINATION: Vital Signs: On examination, blood pressure 127/60. Cardiac: First and second heart sounds were heard. There was no carotid bruit. There was a soft systolic murmur. Respiratory System: Bibasilar crepitations. Abdomen: Soft, nontender. There was no guarding or rigidity. Bowel sounds were heard. Extremities: She has a shunt in her left arm. Examination of her extremities, trace edema. Central Nervous System: Alert and was moving all 4 extremities. HEENT: Atraumatic, normocephalic. Pupils were equal and reacting to light. There was no lymphadenopathy. Trachea was central. LABORATORY EXAMINATION: Sodium 138, potassium 4, BUN 32, creatinine 3.5, glucose 183. WBC 14.6., 15.9 when she came in, hemoglobin 11.5, hematocrit 38, platelet count of 275. ASSESSMENT: Ms. Neil Wagonre is a 74-year-old lady who has end-stage renal disease on dialysis, Crohn disease, severe gastrointestinal bleed that is recurrent, status post colonic surgery as well in the past, diabetes, hypertension, who has significant coronary artery disease with stent placement to the left anterior descending artery and circumflex artery in 2004. The patient is admitted with increasing shortness of breath, and chest x-ray revealed pulmonary edema versus pneumonia with new left ventricular dysfunction, ejection fraction of 30% to 35%. She also has history of supraventricular tachycardia, for which she had been on atenolol at home. RECOMMENDATIONS: 1. I had a detailed discussion with the patient. She has significant cardiac disease, and we will plan for Lexiscan Cardiolite stress test for risk assessment to the extent of ischemia. Unless there is large severe ischemia, the plan is to treat her medically, as she has significant GI bleeding ongoing, almost on a daily basis at the present time, and aspirin and Plavix have worsened these symptoms. As a result, she is not on any antiplatelet therapy, and she will be a poor candidate for intervention. 2. She has more likely congestive heart failure given the LV systolic function; however, she is on antibiotics to make sure there is no pneumonia. We will follow up with the chest x-ray, and I will make the following changes to her medications: We will discontinue the atenolol. I have started her on Coreg 6.25 mg twice daily and Cozaar 25 mg a day. If her blood pressure is stable, we will increase the dosage of Coreg as well. The likely etiology of this LV dysfunction is more than likely secondary to coronary artery disease. The patient understands the problems thereof as far as the coronary artery disease, LV dysfunction, and the reason why we are planning the stress test, only for a risk assessment as well. 3. Congestive heart failure, treatment plan changes as above. 4. Hyperlipidemia, she is unable to tolerate statins. I have not made any changes at the present time. As an outpatient, I will discuss with her regarding PCS canine medications. 5. End-stage renal disease, diabetes, continue management as planned. cc: Filemon Cade MD
--- NOTE | 2019-12-24 13:47 | PROGRESS NOTE ---
DATE: 12/24/2019 SUBJECTIVE: I have seen and examined Ms. Wagoner this morning. Ms. Wagoner referred to be feeling fair. She said she felt choking this morning after she gets her breakfast, but by the time I saw her, she said she was feeling better. She also says she continues to have ongoing shortness of breath. Chest x-ray this morning is seems to suggest some improvement. OBJECTIVE: Vital signs: Blood pressure 127/60, pulse of 85, respiration is 17, temperature 97.7 degrees. Patient is saturating 99% on 2 L. General: Ms. Wagoner is a 74-year-old female. She was in bed. She did not seem to be in any cardiopulmonary distress. HEENT: Mucosa is pink and moist. Anicteric. Acyanotic. Neck: Was supple. I did not see any JVD. Chest: Air entry is bilaterally reduced. There are a few crackles in the posterior lung [place]. Cardiovascular: Regular rate and rhythm. There was an murmur radiating to the neck. GI: Abdomen was soft, nontender. Bowel sounds present. There was no hepatosplenomegaly. Extremities: No pedal edema. FRAME STYLIST: Patient was awake, alert, and oriented. Musculoskeletal: There is AV fistula on the left arm. LABORATORY DATA: None for today. A troponin which was done later this morning showed 1835. A chest x-ray shows interval improvement. There is mild pulmonary edema which persists. A limited echo which was done on the shows ejection fraction of 35% with wall motion abnormality, possibility of Takotsubo versus severe coronary heart disease. ASSESSMENT: 1. Acute hypoxemic respiratory failure, presumably combination of pulmonary edema and superimposed pneumonia. 2. Endstage renal disease on hemodialysis Friday, Friday, and Friday. Nephrology is on board. 3. Diabetes mellitus controlled. 4. Congestive heart failure, ejection fraction of 35%, associated with wall motion abnormalities. Cardiology has been consulted. 5. History of coronary artery disease status post stenting in the past. 6. History of ankylosing spondylitis. So, in general I think Ms. Wagoner is doing fair. She continues to be on antimicrobial coverage. Cardiology has been consulted by Nephrology team due to abnormal echocardiogram. Troponins have been abnormal on the repeat. The patient is pending a stress test today. cc: Ty Davis MD
[2019-12-24] MEDS: CLARITIN PO SCH (13:49)
[2019-12-24] MEDS: NEPHRO-VITE PO SCH (13:49)
[2019-12-24] MEDS ORDERED: NS 500 ML IV ONE (15:48)
[2019-12-24] MEDS ORDERED: VANCOMYCIN 1 GM/NS 1 GM/250 ML IVPB IV ONE (18:00)
[2019-12-24] MEDS ORDERED: ASPIRIN PO SCH (20:45)
[2019-12-24] MEDS ORDERED: ASPIRIN ONE (20:55)
[2019-12-24] MEDS ORDERED: COREG PO SCH (21:00)
[2019-12-24] MEDS ORDERED: ASPIRIN PO ONE (21:42)
[2019-12-24] MEDS ORDERED: LOPRESSOR PO SCH (21:45)
[2019-12-24] MEDS: HEPARIN SUBQ SCH (21:59)
--- NOTE | 2019-12-25 00:32 | EKG Report ---
Test Performed on : 12/24/2019 8:50:53 PM Test Reason : Rhythm change Blood Pressure : / mmHG Vent. Rate : 098 BPM Atrial Rate : 098 BPM P-R Int : 152 ms QRS Dur : 094 ms QT Int : 412 ms P-R-T Axes : -05 025 198 degrees QTc Int : 525 ms Normal sinus rhythm. Left ventricular hypertrophy with repolarization abnormality Prolonged QT Abnormal ECG When compared with ECG of 22-DEC-2019 05:34, (Unconfirmed) T wave inversion now evident in Inferior leads T wave inversion now evident in Anterior leads Confirmed by Casa KAPLAN, Paulie Valerio ([id number]) on 12/25/2019 11:49:08 AM
[2019-12-25] MEDS: LOPRESSOR PO SCH ×4 (03:03→20:37)
[2019-12-25] MEDS: ZOSYN 3.375 GM in NS 50 ML IV SCH ×4 (03:03→20:37)
[2019-12-25 04:30] LABS: HEMATOCRIT 35.3 % (37.0-47.0); HEMOGLOBIN 10.4 g/dL (12.0-16.0); MCH 27.2 PG (27-31); MCHC 29.5 g/dL (33-37); MCV 92.2 FL (81-99); MPV 9.4 FL (7.4-10.4); RBC 3.83 XMIL (4.2-5.4); RDW 16.7 % (11.5-14.5); WBC 8.62 X1000 (4.8-10.8)
[2019-12-25 04:51] LABS: ALBUMIN 3.6 g/dL (3.5-5.0); CALCIUM 8.9 mg/dL (8.8-10.2); CREATININE 3.7 mg/dL (0.5-0.9); PHOSPHORUS 4.5 mg/dL (2.7-4.5); POTASSIUM 3.6 mmol/L (3.5-5.1)
[2019-12-25] MEDS: TYLENOL PO PRN ×4 (06:23→22:26)
[2019-12-25] MEDS: HUMALOG SUBQ SCH ×4 (06:24→20:37)
--- NOTE | 2019-12-25 07:16 | EKG Report ---
Test Performed on : 12/25/2019 06:57:06 AM Test Reason : dyspnea, tachycardia Blood Pressure : / mmHG Vent. Rate : 082 BPM Atrial Rate : 082 BPM P-R Int : 178 ms QRS Dur : 100 ms QT Int : 458 ms P-R-T Axes : 056 022 199 degrees QTc Int : 535 ms Normal sinus rhythm. with sinus arrhythmia. Left ventricular hypertrophy with repolarization abnormality Prolonged QT Abnormal ECG When compared with ECG of 24-DEC-2019 20:50, (Unconfirmed) No significant change was found Confirmed by Casa KAPLAN, Paulie Valerio ([id number]) on 12/25/2019 11:49:11 AM
[2019-12-25] MEDS: HEPARIN SUBQ SCH (08:47)
[2019-12-25] MEDS: NEPHRO-VITE PO SCH (08:47)
[2019-12-25] MEDS: CLARITIN PO SCH (08:47)
[2019-12-25] MEDS: TUMS PO SCH ×3 (08:47→17:48)
[2019-12-25] MEDS ORDERED: ASPIRIN PO SCH ×2 (09:00)
[2019-12-25] MEDS ORDERED: ENTRESTO 24 MG-26 MG TABLET PO SCH ×2 (09:00)
[2019-12-25] MEDS ORDERED: COZAAR PO SCH (09:00)
[2019-12-25] MEDS: PROTONIX IV SCH ×3 (11:58→23:53)
[2019-12-25] MEDS ORDERED: KLOR-CON PO ONE (13:40)
--- NOTE | 2019-12-25 14:26 | PROGRESS NOTE ---
DATE: 12/25/2019 INTERVAL HISTORY: Ms. Wagoner had troponins drawn yesterday which was significantly elevated as compared to her troponins on presentation. She did not have new chest pain or shortness of breath though. EKG obtained serially had worsening T-wave inversions in lateral leads. SUBJECTIVE: Ms Wagoner is anxious after she had a discussion with the molder foam rubber about her condition. She currently denies any chest pain. She is not feeling short of breath. She denies any cough. She denies any chest pressure. She denies nausea, vomiting, abdominal pain. She states she is not making any urine anymore. She has had loose bowel movements. REVIEW OF SYSTEMS: Negative for chest pressure. Negative for shortness of breath at rest. Negative for palpitation. Negative for nausea. Negative for vomiting. MEDICATIONS: She is on acetaminophen, aspirin, calcium carbonate, insulin human lispro, lidocaine cream, Claritin, Lopressor, Nephro-David, Protonix, Zosyn, prednisone, vancomycin and potassium chloride. VITALS: Temperature 97.6 degrees, pulse 82, respiratory rate 20, blood pressure 140/55, she is saturating 100% on 4 L nasal cannula. PHYSICAL EXAMINATION: She is not in acute distress. Air entry bilaterally equal. No wheeze, rhonchi. She has diminished air entry in bases with mild inspiratory crackles. S1, S2 normal. No murmur or gallop. She has jugular venous distention. Abdomen is soft, nontender. Active bowel sounds. She has a mild ankle edema bilaterally. Input and output suggest -700 mL yesterday as she underwent dialysis. LABS: Suggestive of WBC 8.6, hemoglobin 10.4, platelet 237,000. She has BUN of 32, creatinine 3.7, her blood glucose is 200. She does have troponin of 2500. Microbiology, no positive data. chest x-ray it was done yesterday which had improvement in pulmonary edema. ASSESSMENT AND PLAN: 1. Acute hypoxic respiratory failure due to acute pulmonary edema superimposed on pneumonia. Leukocytosis has resolved. She is not complaining of cough so I will stop the antibiotic. Nephrology on board for dialysis. I will titrate her oxygen down to maintain saturation more than 94%. 2. Acute pulmonary edema likely due to acute systolic congestive heart failure due to non-ST elevation myocardial infarction, she has worse T-wave inversions on lateral leads as compared to presentation with elevated troponin. I had a detailed discussion about her condition with molder foam rubber. We will start her on aspirin 81 mg every 48 hours to balance antiplatelet effect as well as bleeding side effect. She has not been listed to be taking any atorvastatin and I will consider adding one after talking with the molder foam rubber. 3. Cardiology team is planning to have a detailed discussion with patient's family about further course of action. Considering her severe GI bleed histories in the past requiring colectomy, she was deemed not the ideal candidate for stenting as she could not tolerate antiplatelets in the past. 4. History of recurrent gastrointestinal bleed status post colectomy, considering her acute NSTEMI episode I will keep her on intravenous Protonix prophylactically though this is not an evidence based approach. I discussed with her about relatively benign nature of pantoprazole except occasional electrolyte abnormalities. I also discussed with her that long-term use could contribute to chronic kidney disease though she is already on dialysis. 5. History of coronary artery disease status post stent in 2004, aware. 6. History of ankylosing spondylitis. She is listed to be taking prednisone and I discussed with her about potential gastrointestinal bleed effects of prednisone. 7. Chronic kidney disease stage 5 on Friday, Friday, Friday hemodialysis. She has a left arm arteriovenous fistula. Appreciate Nephrology recommendation. 8. Continue metoprolol as per molder foam rubber recommendations, insulin lispro for non-insulin- dependent diabetes mellitus, I will stop antibiotics next 24 hours since her pneumonia has seemed to be resolved. DISPOSITION: Continue monitor patient in PVC. It is a challenging situation at the moment considering her NSTEMI episode and acute systolic CHF episode. I have been constantly talking to molder foam rubber about her condition. I will try and reach out to her family. Apparently, Cardiology team is also planning to meet with several of her family members in a conference room or outside the hospital to discuss her case. The patient was allowed to ask questions. All of her questions satisfactorily answered. TIME SPENT: 35 minutes. cc: Lencho Vitale MD
--- NOTE | 2019-12-25 14:46 | CARDIOLOGY PROGRESS NOTE ---
DATE: 12/25/2019 SUBJECTIVE: Patient continues without chest discomfort or shortness of breath on supplemental oxygen per nasal cannula. OBJECTIVE: Vital Signs: Blood pressure 140/55, heart rate 82 with ECG monitor showing sinus rhythm, oxygen saturation 100% on nasal cannula oxygen at 4 L/minute. Neck: There is no significant jugular venous distention. Chest: Clear to auscultation bilaterally. Cardiac Exam: Reveals a regular rate and rhythm without appreciable murmur or gallop. There is no evidence of peripheral edema. LABORATORY DATA: Includes a white blood cell count 8.62, hematocrit 35.3, hemoglobin 10.4, platelet count 237,000. Sodium 140, potassium 3.6, chloride 97, carbon dioxide 24, BUN 32, creatinine 3.7, glucose 200. Initial troponin T high-sensitivity on 12/21 at 5:44 a.m. was 58. Initial followup troponin T high-sensitivity yesterday at 11:55 a.m. 1835 with similar values obtained overnight. Initial CPK 28 with a followup CPK yesterday morning 44 and 79. Echocardiography reports left ventricular ejection fraction of 35% with extensive area of akinesis in distribution of left anterior descending coronary artery, which would appear to extend around left ventricular apex. Resting sestamibi study reviewed and demonstrates minimal perfusion defect if any. Viability in distribution of left anterior descending coronary artery is suggested. Serial EKGs reviewed. Admission ECG on 12/21 demonstrates sinus tachycardia, and ST and T-wave abnormality, consider anterolateral ischemia. Repeat ECGs over the last 2 days showed development of deepening anterolateral T-wave inversion, probably post ischemic change. IMPRESSION: 1. Recent small non-ST elevation myocardial infarction with anterolateral ischemic changes on electrocardiogram and flash pulmonary edema. Patient's symptoms have resolved and chest x-ray has improved markedly. She has known coronary artery disease and remote history of angioplasty/stenting in the past. Echocardiography indicates a sizable area of wall motion abnormality in distribution of left anterior descending coronary artery with resting perfusion study suggesting corresponding viability. 2. Paroxysmal supraventricular tachycardia. 3. End-stage renal disease requiring chronic hemodialysis. 4. Diabetes mellitus. 5. Hyperlipidemia. Patient reportedly has been unable to tolerate statins in the past. 6. History of chronic tendency for gastrointestinal blood loss and associated iron deficiency. Patient has had difficulty tolerating dual antiplatelet therapy in the past with significant gastrointestinal blood loss following her previous coronary angioplasty and stent in the past. She has been off of all antiplatelet agents prior to admission and relates some transient tendency for blood in her stools following hemodialysis which I suspect she gets some heparin with that. This would seem to suggest that she likely would not readily tolerate dual antiplatelet therapy without significant gastrointestinal blood loss the etiology which is not well described in her present records. RECOMMENDATIONS: 1. Maximize medical management for myocardial ischemia. Toward this end, will switch her to metoprolol to allow upward titration of beta lori. 2. Initiate aspirin therapy with 81 mg p.o. every 48 hours. 3. The severity of her coronary situation was discussed at length with her. Given her established poor tolerance of dual anti-platelet therapy, it is questionable whether or not percutaneous intervention would be feasible without precipitating significant GI blood loss. She has significant coronary risk factors and very well may actually have significant multivessel coronary atherosclerosis. I suspect she has sizable burden of ischemia at least in the left anterior descending coronary artery distribution based on current echocardiography and resting myocardial perfusion study. She is high risk for recurrent coronary events and at the same time has significant comorbidities that make her somewhat high risk to have coronary bypass surgery. Coronary bypass may actually be are only consideration for revascularization given her difficulty tolerating dual antiplatelet therapy and the significant likelihood of multivessel coronary atherosclerosis. Patient desires to consider her options. 4. Arrange repeat echocardiography Friday to reassess left ventricular systolic function wall motion to see if there has been some improvement following apparent resolution of her ischemia. cc: Sheldon Lee MD
[2019-12-25 14:52] LABS: CHOLESTEROL 147 mg/dL (0-200); HDL 45 mg/dL (45-65); LDL 76 mg/dL; TRIGLYCERIDES 132 mg/dL (35-135); VLDL 26 mg/dL
[2019-12-25] MEDS ORDERED: LASIX PO SCH (17:45)
[2019-12-25] MEDS: SODIUM CHLORIDE 0.9% INJ SCH (22:22)
[2019-12-26] MEDS: LOPRESSOR PO SCH ×4 (02:03→19:56)
[2019-12-26] MEDS: TYLENOL PO PRN ×5 (02:08→23:18)
[2019-12-26] MEDS: ZOSYN 3.375 GM in NS 50 ML IV SCH ×2 (04:25→04:49)
[2019-12-26] MEDS: HUMALOG SUBQ SCH ×4 (06:20→19:59)
--- NOTE | 2019-12-26 07:03 | Diag Imaging Result Doc PS360 ---
EXAM: CHEST-PORTABLE 12/26/2019 HISTORY: dyspnea TECHNIQUE: AP portable at 0547 COMMENT: Compared to 12/24/2019 the lungs are slightly better expanded and the opacity in the left lower lobe has improved slightly. There is still some ill-defined opacity in the right lower lobe and cardiomegaly and pulmonary vascular prominence. IMPRESSION: Slightly improved pneumonia versus pulmonary edema. Electronically signed by Shorty Arora 12/26/2019 7:01 AM
[2019-12-26] MEDS ORDERED: SYSTANE EYE DROPS BOTH EYES PRN (08:21)
[2019-12-26] MEDS: TUMS PO SCH ×4 (08:23→23:32)
[2019-12-26] MEDS: NEPHRO-VITE PO SCH (08:24)
[2019-12-26] MEDS: CLARITIN PO SCH (08:24)
[2019-12-26 09:09] LABS: CALCIUM 8.7 mg/dL (8.8-10.2); CREATININE 5.9 mg/dL (0.5-0.9); MAGNESIUM 2.1 mg/dL (1.5-2.7); POTASSIUM 4.7 mmol/L (3.5-5.1)
--- NOTE | 2019-12-26 10:17 | PROGRESS NOTE ---
DATE: 12/26/2019 INTERVAL HISTORY: No acute events overnight. I turned Ms. Wagoner's oxygen down, and she was saturating 96% to 97% without any drop in the saturation, though subjectively, she was anxious and felt as if she was getting short of breath, so I turned the oxygen back to 2 L. She denies any chest pain. Otherwise, no shortness of breath or palpitations. She denies nausea or vomiting. REVIEW OF SYSTEMS: Negative for palpitation. Negative for constipation. She is, in fact, having diarrhea. She has not passed urine, and she is concerned about it. OBJECTIVE: Vital Signs: Temperature 97.7 degrees, pulse 78, respiratory rate 18, blood pressure 133/58, she is saturating 93% on 3 L nasal cannula. General: Ms. Wagoner is not in any acute distress. HEENT: Oral cavity is moist. Lungs: Air entry bilaterally equal. No wheeze or rhonchi. Mild crackles in bilateral bases. Heart: S1, S2 normal. Regular. No murmur or gallop. Abdomen: Soft, nontender. Neck: She has elevated neck veins. Extremities: No lower extremity edema. Neurologic: She is alert and oriented x3. Back: She does have kyphosis because of ankylosing spondylitis. LABORATORY DATA: No CBC today. BMP has potassium of 4.7, increasing creatinine to 5.9. Her magnesium is 2.1. MICROBIOLOGY: No new microbiological data. IMAGING: Chest x-ray: Slightly improved pneumonia versus pulmonary edema. ASSESSMENT AND PLAN: 1. Acute hypoxic respiratory failure, likely due to acute pulmonary edema with possible pneumonia, though most likely it was pulmonary edema. Her leukocytosis has resolved. She is status post intravenous antibiotics. I will keep her oxygen to maintain saturation more than 94%, and wean it down as tolerated. 2. Acute pulmonary edema due to acute systolic congestive heart failure due to non ST-elevation myocardial infarction. She also has history of chronic kidney disease stage 5, on intermittent hemodialysis. Chest x-ray suggests improvement in pulmonary edema. Appreciate Nephrology recommendations. 3. Non ST-elevation myocardial infarction with history of coronary artery disease, requiring stent around 2004, with history of intolerance to antiplatelet medications because of recurrent gastrointestinal bleed requiring colectomy. Currently, medical management is recommended by Cardiology team until final decisions are made after the Cardiology team discusses with the family. I will continue aspirin every 48 hours, metoprolol every 6 hours as per Cardiology's recommendation. I appreciate their recommendation regarding use of atorvastatin. I will keep potassium more than 4 and magnesium more than 2. 4. History of recurrent gastrointestinal bleed requiring colectomy, and intolerance to antiplatelet medications. I will keep her on proton pump inhibitors to prevent gastrointestinal bleed while we keep her on aspirin. 5. Chronic kidney disease stage 5, on Friday, Friday, Friday hemodialysis through left arm arteriovenous fistula. Appreciate Nephrology recommendation. The patient is concerned about not being able to pass urine, and I explained to her that this could be in the setting of pulling more fluid during dialysis versus her acute heart failure. 6. History of ankylosing spondylitis. Continue her home prednisone, along with Protonix. 7. Disposition. Continue to monitor the patient in PVC. Her condition and prognosis are guarded. I allowed her to ask questions regarding her medical conditions. We discussed about pulmonary edema. We discussed about not being able to pass urine, oxygenation, and all of her questions have been answered. Time spent: 35 minutes. cc: Lencho Vitale MD MTDD
[2019-12-26] MEDS: SODIUM CHLORIDE 0.9% INJ SCH (11:45)
[2019-12-26] MEDS: PROTONIX IV SCH (11:45)
--- NOTE | 2019-12-26 12:26 | PROGRESS NOTE ---
DATE: 12/26/2019 SUBJECTIVE: Ms. Wagoner had started developing epistaxis. I got paged. The nurses had inserted a nasal pack, though it did not stop. I evaluated her at bedside. OBJECTIVE: Her right nose still had nasal packing. She also had some fresh blood in the left nostril, and she was spitting out blood as well. Her nasal packing was also getting soaked. I could not examine her pharynx properly because of her body position, though on my limited examination, I did not see any pharyngeal ulceration. ASSESSMENT: I had a discussion with the Cardiology team and accordingly, we will space out aspirin frequency to every 72 hours, and I will consult ENT physician for further management. Time spent: 10 minutes. cc: Lencho Vitale MD MTDD
--- NOTE | 2019-12-26 14:45 | CONSULTATION ---
DATE OF CONSULTATION: 12/26/2019 HISTORY OF PRESENT ILLNESS: I was asked to see this patient regarding epistaxis, right, which began this morning. She had initial placement of anterior pack with some persistent bleeding. She has, within the last 48 hours, had IV heparin, though is not on anticoagulants at home. She receives dialysis 3 days a week. She was admitted 4 days ago with complaint of shortness of breath, productive cough, and diaphoresis. She was noted to have cardiomegaly and pulmonary edema on admission. Her COVID-19 test was negative. Subsequent evaluation was by Nephrology and Cardiology. She has known coronary artery disease. PAST MEDICAL HISTORY: Reviewed. SOCIAL HISTORY: Reviewed. FAMILY HISTORY: Reviewed. REVIEW OF SYSTEMS: Noted. PHYSICAL EXAMINATION: Constitutional: Elderly female. No acute distress. Nose: Anterior tampon pack, right nose. No active bleeding around the pack. Left nose is clear. Oral cavity/pharynx: No blood clots in the oropharynx. The patient is able to produce and spit serosanguineous fluid into a cup. IMPRESSION: Right epistaxis, controlled at this time with tampon pack. PLAN: I have discussed at length with Ms. Wagoner. Would like to avoid placement of larger pack with current control, though she is aware that this is a possibility. If bleeding recurs to a significant degree, she understands that this would introduce more nasal mucosal trauma with additional bleeding sites, but may be unavoidable. We will follow and see how she does. Will recheck in the morning and make a decision about current pack. If at all possible, would recommend no further anticoagulation, or minimal as needed. Will follow with you. cc: Greg Perera MD
--- NOTE | 2019-12-26 15:35 | PROGRESS NOTE ---
DATE: 12/26/2019 SUBJECTIVE: Patient continues without chest discomfort or shortness of breath and she is presently off oxygen with oxygen saturation on room air 95%. She has had some brief SVT. She has been bothered by persistent nosebleed. She last got subcu heparin 5000 units yesterday morning. She also got started on aspirin with last dose of baby aspirin yesterday. OBJECTIVE: Blood pressure 133/58, heart rate 78, oxygen saturation 95% on room air currently. There is no significant jugular distention.Chest: Clear to auscultation bilaterally. Cardiac: Reveals a regular rate and rhythm without appreciable murmur or gallop. There is no evidence of peripheral edema. LABORATORY DATA: Includes sodium 139, potassium 4.7, chloride 98, carbon dioxide 23, BUN 49, creatinine 5.9, glucose 211. Fasting lipids obtained yesterday include triglycerides 132, total cholesterol 147, LDL cholesterol 76, HDL cholesterol 26. IMPRESSION: 1. Recent small non-ST elevation myocardial infarction with anterolateral ischemic changes on ECG and flash pulmonary edema. Patient's symptoms have resolved and not recurred. Chest x-ray has improved. She has known coronary disease and remote history of angioplasty/stenting in the past. Echocardiography indicated a sizable area of wall-motion abnormality in distribution of left anterior descending coronary with resting perfusion study demonstrating corresponding viability. 2. Paroxysmal supraventricular tachycardia. 3. End-stage renal disease requiring chronic hemodialysis. 4. Type 2 diabetes mellitus. 5. Hyperlipidemia. Patient has been unable to tolerate statins in the past. 6. Chronic tendency for gastrointestinal blood loss exacerbated by dual antiplatelet therapy in the past. 7. Recurrent nosebleeds. RECOMMENDATIONS: 1. Maximize medical therapy for myocardial ischemia. 2. Minimal aspirin therapy as tolerated. 3. The severity of her coronary situation was discussed at length with her family and again with her today. Given her established poor tolerance of dual anti-platelet therapy, it is not clear whether or not percutaneous intervention would be feasible without precipitating significant gastrointestinal blood loss. Moreover, she has significant coronary risk factors and very well may have significant multivessel coronary atherosclerosis. She clearly has a sizable burden of ischemia based on echocardiography and resting perfusion study. She is at high risk for recurrent coronary events, at the same time has significant comorbidities that make her somewhat high risk to have coronary bypass surgery. She has been considering her options and thus far remains somewhat reluctant to pursue revascularization. 4. Repeat echocardiography tomorrow to reassess left ventricular function as well as wall motion. cc: Sheldon Lee MD
[2019-12-26] MEDS: PREDNISONE PO SCH (19:59)
[2019-12-26] MEDS: LIPITOR PO SCH ×2 (19:59→20:01)
[2019-12-27] MEDS: LOPRESSOR PO SCH ×2 (02:55→08:56)
[2019-12-27] MEDS: TYLENOL PO PRN ×3 (02:55→20:33)
[2019-12-27 06:11] LABS: BASO# 0.05 X1000 (0.0-0.2); BASO% 0.6 % (0.0-0.8); EOS# 0.01 X1000 (0.0-0.7); EOS% 0.1 % (0.0-10.0); HEMOGLOBIN 9.7 g/dL (12.0-16.0); IMM GRAN# 0.04 X1000 (0.0-0.04); IMM GRAN% 0.4 % (0.0-0.5); LYMPH# 1.05 X1000 (1.2-3.4); LYMPH% 11.6 % (20.5-51.1); MCH 26.8 PG (27-31); MCHC 29.4 g/dL (33-37); MCV 91.2 FL (81-99); MONO# 0.39 X1000 (0.11-0.59); MONO% 4.3 % (1.7-9.3); MPV 9.6 FL (7.4-10.4); NEUT# 7.51 X1000 (1.4-6.5); PLT 225 X1000 (130-400); RBC 3.62 XMIL (4.2-5.4); RDW 16.6 % (11.5-14.5); WBC 9.05 X1000 (4.8-10.8)
[2019-12-27] MEDS: PRILOSEC PO SCH (06:13)
[2019-12-27 06:39] LABS: CALCIUM 8.7 mg/dL (8.8-10.2); CREATININE 6.7 mg/dL (0.5-0.9); MAGNESIUM 1.9 mg/dL (1.5-2.7); POTASSIUM 5.4 mmol/L (3.5-5.1)
[2019-12-27] MEDS: HUMALOG SUBQ SCH ×4 (06:44→20:27)
--- NOTE | 2019-12-27 07:33 | EKG Report ---
Test Performed on : 12/26/2019 06:06:54 AM Test Reason : dyspnea, tachycardia Blood Pressure : / mmHG Vent. Rate : 076 BPM Atrial Rate : 076 BPM P-R Int : 170 ms QRS Dur : 092 ms QT Int : 444 ms P-R-T Axes : 001 024 162 degrees QTc Int : 499 ms Sinus rhythm. with premature atrial complexes. Minimal voltage criteria for LVH, may be normal variant ST & T wave abnormality, consider anterolateral ischemia Prolonged QT Abnormal ECG When compared with ECG of 25-DEC-2019 06:57, premature atrial complexes. are now present T wave inversion no longer evident in Inferior leads Confirmed by Casa KAPLAN, Paulie Valerio ([id number]) on 12/27/2019 4:48:03 PM
[2019-12-27] MEDS: CLARITIN PO SCH (08:56)
[2019-12-27] MEDS: TUMS PO SCH ×4 (08:56→20:26)
[2019-12-27] MEDS: NEPHRO-VITE PO SCH (08:56)
[2019-12-27] MEDS ORDERED: ASPIRIN PO SCH (09:00)
--- NOTE | 2019-12-27 12:03 | PROGRESS NOTE ---
DATE: 12/27/2019 SUBJECTIVE: The patient has had no significant bleeding today. Not spitting any blood. No anterior epistaxis. Nasal tampon removed without difficulty. Does have mild excoriation of nasal mucosa, but no active bleeding. IMPRESSION: Epistaxis, resolved. PLAN: Will see how she does with the pack out. Available if needed. cc: Greg Perera MD
[2019-12-27] MEDS ORDERED: NS 2,000 ML MISC PRN (12:29)
--- NOTE | 2019-12-27 12:49 | ECHO REPORT ---
ORDER DATE: 12/25/2019 INDICATION: Evaluate LV function. FINDINGS: This is a limited study. 1. The left ventricle appears to be normal in size with an end-diastolic dimension of 4.9 cm. Normal wall thicknesses with a septal wall thickness of 1 cm. Normal ejection fraction with an estimated EF of 60%. 2. Aortic valve appears to open reasonably well although it is sclerotic. 3. No mitral valve prolapse. 4. No pericardial effusion seen. 5. Normal IVC size. 6. Normal RV size and systolic function. 7. No Doppler evaluation performed. cc: MD Sheldon Noland MD
--- NOTE | 2019-12-27 14:12 | PROGRESS NOTE ---
DATE: 12/27/2019 INTERVAL HISTORY: ENT physician had seen her, and conservative management was recommended for her epistaxis yesterday. . SUBJECTIVE: Ms. Wagoner states that her epistaxis had stopped around midnight. Since then, she has not been spitting out blood. She denies any chest pain, shortness of breath. She denies any nausea or vomiting. Her hemoglobin dropped to 9.7. VITALS: Currently, temperature 97.6 degrees, pulse 82, respiratory rate 15, blood pressure 147/67, saturating 98% on room air. PHYSICAL EXAMINATION: Ms. Wagoner is not in acute distress.HEENT: Oral cavity is moist. I cannot see any bleeding inside the mouth. She has a right-sided nasal pack. No bleeding on the left nostril except old crusted blood. Cardiovascular: S1, S2 normal. No murmur, rub, or gallop. Lungs: Air entry bilaterally equal. No wheeze or rhonchi. Mild crackles at bases. Abdomen: Soft, nontender. Back/Musculoskeletal: She has kyphosis, and she has tightening of the skin of bilateral interphalangeal joints, more pronounced on the left side, because of ankylosing spondylitis. Neuro: She is alert and oriented x3. LABS: Hemoglobin of 9.7, platelets 225,000. Sodium 133, potassium 5.4, chloride 93, BUN 62, creatinine 6.2. Her blood glucose is 206. Her magnesium is 1.9. No positive microbiological or no new imaging data. She yesterday refused to take her atorvastatin saying that she did not take it in the past because her cholesterol was normal. I explained to her that considering her coronary artery disease, she may benefit from taking lipid medication, and she agreed to take it. She denies experiencing any side effects of cholesterol. ASSESSMENT AND PLAN: 1. Acute hypoxic respiratory failure with acute pulmonary edema, likely due to [id number]-aezypymew myocardial infarction, now resolved. She is breathing well on room air. 2. Acute pulmonary edema due to acute systolic congestive heart failure with ejection fraction of 35% with regional wall motion abnormality, likely due to tbl-IR-ylpkinrcs myocardial infarction. She is receiving dialysis for volume removal. Continue medical management with metoprolol, aspirin every 72 hours as per my discussion with associate professor of psychology over the weekend. I discussed with her about benefit versus risk of atorvastatin, and she agreed to take atorvastatin, which I have ordered. Appreciate Cardiology recommendation about need for RIDGE inhibitors or ARB, medical versus interventional management. 3. History of recurrent gastrointestinal bleed requiring colectomy and intolerance to antiplatelet medications; recurrent rectal bleed with heparin during dialysis; epistaxis once she was started on aspirin and subcutaneous heparin during this admission. I am awaiting for the associate professor of psychology's recommendation regarding management of her antiplatelets. For now, I am keeping her on aspirin every 72 hours. 4. Chronic kidney disease stage 5 on Friday, Friday, Friday hemodialysis through left arm AV fistula. Appreciate Nephrology recommendation regarding correction of electrolyte abnormality including hyperkalemia. She was able to pass urine this morning. Resume home Lasix. 5. History of ankylosing spondylitis. Continue home prednisone. I discussed with her about the risk associated with gastric ulcers with prednisone; she is on Stelara at home. I added Protonix to prevent gastrointestinal bleed. 6. Disposition. Continue to monitor patient in PVC. Plan of care discussed with her. She was allowed to ask questions. All of her questions were answered. TIME SPENT: 35 minutes. ADDENDUM: I discussed with the associate professor of psychology about her care both in person and on the phone. The plan is to await further chest imaging for pulmonary edema on 12/27 and then have a decision about continued medical management vs transfer to [place] for coronary angiography. cc: Lencho Vitale MD MTDD
--- NOTE | 2019-12-27 14:14 | NEPHROLOGY PROGRESS NOTE ---
DATE: 12/27/2019 SUBJECTIVE: She states she had a hard weekend. She had a nose bleed following the administration of heparin. She has no shortness of breath as long as she is at rest, but she does get short of breath with any exertion. Her troponins were abnormal and rising. She was seen by Dr. Lee over the weekend. They are considering possible revascularization options. OBJECTIVE: Vital Signs: Blood pressure 147/67, heart rate 82, respirations 15, afebrile. Weight 60.4 kg. General: Chronically ill, no distress. Skin: Warm and dry. HEENT: Conjunctivae are pink. Neck: Neck veins are not visible in the erect position. Heart: Regular with a gallop. Lungs: Equal. No crackles. Abdomen: Soft, nontender. Bowel sounds present. Extremities: There is 1+ edema. No clubbing or cyanosis. IMPRESSION: 1. Chronic kidney disease 5D. Target 3.5 L ultrafiltration today. Otherwise we will use her routine outpatient dialysis prescription. 2. Possible oyv-MG-arplbtmne myocardial infarction. Repeat echocardiogram did not have obvious wall motion abnormalities as described on the previous study. Appreciate cardiology's help. 3. Epistaxis. Hemoglobin 9.7 today, 11.6 on presentation. We will follow appreciate. Dr. Perera's help. cc: Dalton Marin MD
[2019-12-27] MEDS ORDERED: COZAAR PO SCH (14:15)
--- NOTE | 2019-12-27 14:15 | Diag Imaging Result Document ---
PROCEDURE NAME: MYOCARDIAL PERFU SCAN, REST - 12/27/2019 INDICATION: LV dysfunction, dyspnea. PROCEDURES PERFORMED: Rest myocardial perfusion imaging (rest dose of 25.9 mCi of technetium). FINDINGS: 1. No evidence of abnormal extracardiac uptake. 2. Perfusion imaging does not clearly demonstrate any significant defects. Rest only imaging done. Gut uptake noted that interferes with interpretation of the inferior wall. 3. Normal ejection fraction of 57%. End-diastolic volume 95, end-systolic volume 41. There is very slight hypokinesis of the apex. cc: MD Kenya Noland PA MTDD
[2019-12-27] MEDS: LIPITOR PO SCH (20:27)
[2019-12-28] MEDS: TYLENOL PO PRN ×5 (01:29→23:43)
[2019-12-28] MEDS: COREG PO SCH ×3 (01:30→21:34)
[2019-12-28 05:31] LABS: HEMATOCRIT 33.5 % (37.0-47.0); HEMOGLOBIN 10.1 g/dL (12.0-16.0); MCH 27.1 PG (27-31); MCHC 30.1 g/dL (33-37); MCV 89.8 FL (81-99); MPV 9.2 FL (7.4-10.4); RBC 3.73 XMIL (4.2-5.4); RDW 16.7 % (11.5-14.5); WBC 7.45 X1000 (4.8-10.8)
[2019-12-28] MEDS: PRILOSEC PO SCH ×2 (05:41→07:13)
[2019-12-28] MEDS: HUMALOG SUBQ SCH ×4 (06:08→21:34)
[2019-12-28 06:15] LABS: CALCIUM 8.7 mg/dL (8.8-10.2); CREATININE 4.5 mg/dL (0.5-0.9); PHOSPHORUS 5.1 mg/dL (2.7-4.5); POTASSIUM 4.2 mmol/L (3.5-5.1)
[2019-12-28] MEDS ORDERED: LASIX PO SCH (08:00)
[2019-12-28] MEDS: TUMS PO SCH ×3 (08:32→17:21)
[2019-12-28] MEDS: NEPHRO-VITE PO SCH (08:32)
[2019-12-28] MEDS: COZAAR PO SCH (08:32)
[2019-12-28] MEDS: CLARITIN PO SCH (08:32)
[2019-12-28] MEDS ORDERED: ASPIRIN PO SCH (09:00)
--- NOTE | 2019-12-28 10:12 | Diag Imaging Result Doc PS360 ---
EXAM: CHEST-2 VIEWS HISTORY: dyspnea TECHNIQUE: Two views COMPARISON: 12/26/2019 FINDINGS: The lungs are hyperexpanded. The heart is mildly enlarged. The infiltrates in the left lower lobe. Trace left pleural fluid. The right lung is clear. IMPRESSION: Small left lower lobe pneumonia. Electronically signed by Emir Cho 12/28/2019 10:09 AM
--- NOTE | 2019-12-28 14:24 | NEPHROLOGY PROGRESS NOTE ---
DATE: 12/28/2019 SUBJECTIVE: She is sitting up in the chair. No longer requiring oxygen. No cough or sputum. OBJECTIVE: Vitals: As recorded. General: No acute distress. Skin: Warm and dry. Eyes: Conjunctivae are pink. Neck: Neck veins are not visible in the erect position. Heart: Regular. No gallops. Lungs: Equal. No crackles or wheezes. Abdomen: Soft, nontender. Bowel sounds present. Extremities: Trace edema. No clubbing or cyanosis. IMPRESSION: Congestive heart failure/pulmonary edema. Significantly improved. She has discussed her care with Cardiology and has not opted to pursue invasive diagnostic studies. We will adjust her outpatient dry weight. Okay for discharge from my perspective. cc: Dalton Marin MD
--- NOTE | 2019-12-28 15:54 | PROGRESS NOTE ---
DATE: 12/28/2019 SUBJECTIVE: This morning Ms. Wagoner refers to be doing fair, said had physical therapy today and that generalized ankylosis pains got exacerbated. OBJECTIVE: Vitals: Blood pressure is 119/61, pulse of 104, respiration is 17, temperature is 97.9 degrees. General: Ms. Wagoner is a 74-year-old female she is in bed no distress. Mucosa is pink and moist. Anicteric. Acyanotic. Neck: Supple. Chest: Good entry bilateral. I did not hear any crepitation. No rhonchi. Cardiovascular: Regular rate and rhythm. No murmurs. Abdomen: Soft, nontender. Bowel sounds present. Extremities: No pedal edema. Musculoskeletal: The patient has mild kyphosis. 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 LABORATORY DATA: WBC 7.45, hemoglobin of 10.1, platelet count of 259,000. Chemistry is also reviewed consistent with end-stage renal disease. Patient's troponins continue to be remarkably elevated. ASSESSMENT: 1. Acute hypoxemic respiratory failure on presentation improved. 2. Pulmonary edema secondary to congestive heart failure. 3. Non-ST segment elevation myocardial infarction. 4. Ischemic cardiomyopathy versus takotsubo. Repeat echocardiogram has significantly improved. 5. History of recurrent gastrointestinal bleed requiring hemicolectomy as a result of anti- platelet therapy. 6. End-stage renal disease on hemodialysis. 7. History of ankylosing spondylosis. So in general I think Ms. Wagoner is doing well. She still has generalized weakness which physical therapy is working with her. I reviewed her medications, no changes at this point. Aspirin has been discontinued because of remarkable epistaxis during the hospital course. I think at this point nephrology has signed off. We are waiting on final recommendations from Cardiology. I think Ms. Wagoner will not probably be a candidate for intervention because of her history of intolerance to anti-platelet therapy. We also pending on Social Work for placement. cc: Ty Davis MD
[2019-12-28] MEDS: LIPITOR PO SCH (21:34)
[2019-12-28] MEDS: PREDNISONE PO SCH (21:34)
[2019-12-29] MEDS: TYLENOL PO PRN ×2 (06:28→21:04)
[2019-12-29] MEDS: HUMALOG SUBQ SCH ×4 (06:28→21:03)
[2019-12-29] MEDS: PRILOSEC PO SCH (06:29)
[2019-12-29] MEDS: NEPHRO-VITE PO SCH ×2 (07:19→09:00)
[2019-12-29] MEDS: CLARITIN PO SCH ×2 (07:19→08:58)
[2019-12-29] MEDS: COZAAR PO SCH ×2 (07:20→09:00)
[2019-12-29] MEDS: TUMS PO SCH ×3 (07:21→16:30)
[2019-12-29] MEDS: COREG PO SCH ×2 (07:21→08:59)
[2019-12-29] MEDS ORDERED: NS 2,000 ML MISC PRN (07:21)
--- NOTE | 2019-12-29 09:59 | NEPHROLOGY PROGRESS NOTE ---
DATE: 12/29/2019 SUBJECTIVE: She had an episode of atrial fibrillation with RVR during her treatment. Heart rate as high as 197, so her treatment was discontinued after 30 minutes. At this time, heart rate is controlled again and she is without symptoms. She states that she has episodes of atrial fibrillation frequently, but it never happens during her dialysis treatment. Otherwise, she has been doing well. Her strength is improving. She is on room air. OBJECTIVE: Vital Signs: Blood pressure 113/48, heart rate 93, respirations 21, afebrile. General: No acute distress. Skin: Warm and dry. Conjunctivae are pink. Neck: The neck veins are visible at 6 to 8 cm. Heart: Regular. No gallops. Lungs: Equal. No crackles or wheezes. Abdomen: Soft, nontender. Bowel sounds are present. Extremities: Trace edema. No clubbing or cyanosis. IMPRESSION AND PLAN: 1. Congestive heart failure. Chest x-ray essentially is clear on yesterday. Her chest x-ray was read as "pneumonia" on the left. She is not on antibiotics and has not been. 2. Atrial fibrillation with rapid ventricular rate. Sinus rhythm at this time. 3. Chronic kidney disease 5D. We will plan a short dialysis treatment tomorrow and then get her back on schedule. 4. I will increase her off day Lasix dose to 40 mg. cc: Dalton Marin MD
--- NOTE | 2019-12-29 11:08 | PROGRESS NOTE ---
DATE: 12/29/2019 SUBJECTIVE: I have seen and examined Ms. Wagoner this morning. Ms. Wagoner refers to be slightly disappointed because she thought she would be discharged today after dialysis. Unfortunately, when she went for dialysis treatment, I understand 30 minutes into treatment she went into what appears to be tachyarrhythmia. When I reviewed the telemetry tracing, it appears to be SVT, but that spontaneously converted to normal sinus rhythm. It appears that at about 08:48 I am not sure if that at the Dialysis Unit. The vitals pretreatment showed a pulse rate of 98, but then posttreatment showed a pulse rate of 184. I think that is when she was in the fast rhythm. Currently, she refers to be doing well. She denies any new complaints. No chest pain or shortness of breath. OBJECTIVE: Vital signs: Current vitals, blood pressure is 113/48, pulse of 93, respiration is 21, temperature of 98.1 degrees. Patient is saturating 99% on room air. General Exam: Ms. Wagoner, 74-year-old female. She is in bed. She is not in any cardiopulmonary distress. HEENT: Mucosa is pink and moist. Anicteric. Acyanotic. Neck: Supple. No JVD. Respiratory System: There is good air entry bilateral. No crepitations. No rhonchi. No accessory muscle use. Cardiovascular: Regular rate and rhythm. I did not hear any murmurs. Abdomen: Soft. Bowel sounds present. No hepatosplenomegaly. Extremities: No pedal edema. 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 There is no focal deficit. 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 The patient also has mild kyphosis. LABORATORY DATA: No laboratory data today. Glucose was 242. IMAGING STUDIES: No imaging studies. CURRENT MEDICATIONS: The patient's current medications have all been reviewed, no changes. She is still on atorvastatin 40 mg p.o. at bedtime, Coreg 12.5 b.i.d., Lasix 40 mg on Friday, Tuesdays, , Saturdays, losartan 50 mg p.o. daily, prednisone. ASSESSMENT: 1. Acute hypoxemic respiratory failure on presentation secondary to pulmonary edema as a result of congestive heart failure. 2. [id number] myocardial infarction. The patient has been evaluated by Cardiology. Will continue medical management. 3. Ischemic cardiomyopathy versus takotsubo. Repeat echocardiogram shows ejection fraction is up to 60%. 4. History of recurrent gastrointestinal bleed requiring hemicolectomy as a result of antiplatelet therapy. The patient is currently contraindicated to be on any form of antiplatelet/anticoagulant. 5. End-stage renal disease on hemodialysis. 6. History of ankylosing spondylosis. Patient is on steroids. 7. Recurrent tachyarrhythmia. According to the patient she gets recurrent SVTs every now and then. The tracing at the Dialysis Unit seems to suggest SVT, however, other underlying possible paroxysmal atrial arrhythmias can also be a possibility. I think she will need to be evaluated on the long-term with possible heart monitoring device on the long-term. 8. Profuse epistaxis during the hospital course presumably from anticoagulation. The patient was attended to by ENT. This is resolved. So in general, I think Ms. Wagoner is currently stable, asymptomatic. No more shortness of breath. Volume status is euvolemic at this point. Unfortunately, her dialysis session had to be aborted because of tachyarrhythmia. There is a plan for her to get a session tomorrow and hopefully we can get her to the rehab. cc: Ty Davis MD
--- NOTE | 2019-12-29 11:29 | EKG Report ---
Test Performed on : 12/29/2019 11:16:16 AM Test Reason : arrythmia Blood Pressure : / mmHG Vent. Rate : 091 BPM Atrial Rate : 091 BPM P-R Int : 158 ms QRS Dur : 096 ms QT Int : 404 ms P-R-T Axes : 043 022 129 degrees QTc Int : 496 ms Normal sinus rhythm. ST & T wave abnormality, consider inferior ischemia ST & T wave abnormality, consider anterolateral ischemia Prolonged QT Abnormal ECG When compared with ECG of 26-DEC-2019 06:06, premature atrial complexes. are no longer present Confirmed by Casa KAPLAN, Paulie Valerio ([id number]) on 12/30/2019 9:49:36 AM
[2019-12-29] MEDS: TOPROL XL PO SCH ×2 (11:52→21:04)
--- NOTE | 2019-12-29 12:35 | CARDIOLOGY PROGRESS NOTE ---
DATE: 12/29/2019 This is a followup note. SUBJECTIVE: The patient today was undergoing dialysis and went into supraventricular tachycardia with a rate of 160 to 170 beats per minute which lasted for 10 minutes. She did not feel well at that time. As far as her SVT is concerned she has a known history of supraventricular tachycardia in the past and she was diagnosed to have SVT and had seen electrophysiology services and at that time had the option of doing an ablation versus medical treatment and she had been put on beta blockers. Since she has been started on dialysis she says that she has been having episodes of palpitations which are relieved with vagal maneuvers and associated with beta blockers she is better. Currently she is in sinus rhythm and does not complain of any discomfort. She says that she is weak. Denies any chest pain. OBJECTIVE: Vital Signs: On examination blood pressure was 113/48. Cardiovascular: First and second heart sounds were heard. There was a faint systolic murmur. Respiratory System: Distal breath sounds. Abdomen: Soft and nontender. There was no guarding or rigidity. Bowel sounds were heard. Central Nervous System: Alert and oriented and was moving all 4 extremities. Extremities: Examination of the extremities reveals no pedal edema. LABORATORY EXAMINATION: WBC is 7.43, hemoglobin 10.1, hematocrit 23.5, and platelet count 252. Yesterday sodium was 135, potassium 4.2, BUN 35, and creatinine 4.5. PROBLEM LIST: 1. Non-Q-wave myocardial infarction. 2. Patient is high risk for any intervention given severe bleeding issues with aspirin, Plavix, and/or heparin and as a result medical management was discussed and the patient would like to be managed medically with no further interventions at the present time. 3. Left ventricular dysfunction with normalization of left ventricular systolic function during this hospitalization. 4. Coronary artery disease status post stent placement to the left anterior descending artery and circumflex artery in 2004. 5. Recurrent gastrointestinal bleed, Crohn's disease, and ankylosing spondylitis status post colectomy in the past. RECOMMENDATIONS: 1. Given her SVT and she has a history of SVT as well I will change her out of Coreg and put her on Toprol XL. We will continue with the Cozaar. 2. We will check lab work, BNP, and magnesium today to make sure that there is no electrolyte imbalance as well to trigger this SVT. As far as coronary artery disease she will not be on aspirin or Plavix given the severe GI bleeding as well as epistaxis she has had during this hospitalization. Thank you for the consult. We will follow the hospital course. cc: Filemon Cade MD MTDD
[2019-12-29 13:24] LABS: CALCIUM 8.1 mg/dL (8.8-10.2); CREATININE 5.8 mg/dL (0.5-0.9); POTASSIUM 4.1 mmol/L (3.5-5.1)
[2019-12-29] MEDS: LIPITOR PO SCH (21:04)
[2019-12-30] MEDS: TYLENOL PO PRN ×4 (05:30→21:25)
[2019-12-30] MEDS: PRILOSEC PO SCH ×2 (05:30→06:37)
[2019-12-30 06:10] LABS: HEMATOCRIT 29.8 % (37.0-47.0); MCH 26.9 PG (27-31); MCHC 30.2 g/dL (33-37); MCV 89.2 FL (81-99); MPV 9.6 FL (7.4-10.4); RBC 3.34 XMIL (4.2-5.4); RDW 16.6 % (11.5-14.5); WBC 9.18 X1000 (4.8-10.8)
[2019-12-30] MEDS: HUMALOG SUBQ SCH ×4 (06:36→21:25)
[2019-12-30] MEDS ORDERED: NS 2,000 ML MISC PRN (07:29)
[2019-12-30] MEDS ORDERED: NS 1,000 ML IV PRN (07:29)
[2019-12-30] MEDS: TUMS PO SCH ×3 (07:45→16:23)
[2019-12-30] MEDS: CLARITIN PO SCH ×2 (07:45→08:24)
[2019-12-30] MEDS: LASIX PO SCH ×2 (07:46→10:27)
[2019-12-30] MEDS: COZAAR PO SCH ×2 (07:46→08:25)
[2019-12-30] MEDS: NEPHRO-VITE PO SCH ×2 (07:46→08:25)
[2019-12-30] MEDS: TOPROL XL PO SCH ×3 (07:46→21:25)
--- NOTE | 2019-12-30 07:49 | EKG Report ---
Test Performed on : 12/30/2019 07:14:48 AM Test Reason : SVT Blood Pressure : / mmHG Vent. Rate : 085 BPM Atrial Rate : 085 BPM P-R Int : 162 ms QRS Dur : 104 ms QT Int : 410 ms P-R-T Axes : 054 028 182 degrees QTc Int : 487 ms Normal sinus rhythm. Left ventricular hypertrophy with repolarization abnormality Abnormal ECG When compared with ECG of 29-DEC-2019 11:16, (Unconfirmed) No significant change was found Confirmed by Casa KAPLAN, Paulie Valerio ([id number]) on 12/30/2019 9:49:56 AM
[2019-12-30 07:55] LABS: ALBUMIN 3.8 g/dL (3.5-5.0); CALCIUM 8.2 mg/dL (8.8-10.2); CREATININE 6.9 mg/dL (0.5-0.9); PHOSPHORUS 5.6 mg/dL (2.7-4.5); POTASSIUM 4.1 mmol/L (3.5-5.1)
--- NOTE | 2019-12-30 08:59 | PROGRESS NOTE ---
DATE: 12/30/2019 SUBJECTIVE: I have seen and examined Ms. Wagoner this morning. She was waiting to go for dialysis. She refers to be feeling okay. Did not have any more of the SVT. Cardiology saw her yesterday, changed her carvedilol to Toprol, and since then, heart rate has been fairly stable. OBJECTIVE: Current Vital Signs: Blood pressure is 134/60, pulse of 87, respirations are 17, temperature is 97.4 degrees. This morning, Ms. Wagoner refers to be doing well. She was in bed. No distress. HEENT: Mucosa is pink and moist. Anicteric. Acyanotic. Neck: Supple. No JVD. Respiratory System: There is good air entry bilaterally. No crepitations. No rhonchi. No accessory muscle use. Cardiovascular: Regular rate and rhythm. No murmurs, no rubs, no gallops. GI: Abdomen was soft. No hepatosplenomegaly. Extremities: No pedal edema. CASE LINER: The patient is awake, alert, oriented. No focal deficit. Musculoskeletal: The patient has positive sclerodactyly in the left hand from long-standing rheumatological disease. She also has mild kyphosis. Laboratory Data: CBC shows mild normocytic anemia. Chemistry is consistent with renal failure. Troponin is trending down. No imaging studies for today. Cardiology notes from yesterday have been noted. ASSESSMENT: 1. Acute hypoxemic respiratory failure on presentation secondary to pulmonary edema as a result of congestive heart failure, improved. 2. Non-ST elevation myocardial infarction. The patient has been evaluated by cardiology. At this point, continue medical management. 3. Ischemic cardiomyopathy versus takotsubo. Repeat echocardiogram shows recovery ejection fraction up to 60%. 4. History of recurrent major gastrointestinal bleed requiring hemicolectomy, as a result of antiplatelet therapy. The patient is currently contraindicated to be on any form of antiplatelet/anticoagulant. 5. Endstage renal disease, on hemodialysis. 6. History of ankylosing spondylosis. Patient is on steroids. 7. Recurrent tachyarrhythmia, presumably supraventricular tachycardia. The patient has been placed on metoprolol. Heart rate is better controlled. 8. Profuse epistaxis during the hospital course due to anticoagulation use. The patient was evaluated by ears, nose, and throat. Epistaxis is resolved. PLAN: In general, I think Ms. Wagoner is doing well. I understand the nurses at rehab want a repeat of her Covid-19 testing. Unfortunately, because she had a very bad epistaxis, I do not think it would be reasonable to do it from the nostril. We will find out if oropharyngeal wall would do as well. Ms. Wagoner declined to do physical therapy yesterday. She, however, did 90 feet full weightbearing with minimum assist 3 days ago. We will see how she does today. The ultimate plan is either to get her to rehab or get her home with PT. cc: Ty Davis MD MTDD
--- NOTE | 2019-12-30 16:45 | NEPHROLOGY PROGRESS NOTE ---
DATE: 12/30/2019 SUBJECTIVE: She has not been able to be discharged because she is waiting on a negative coated test. Otherwise, her shortness of breath is improved. She is on room air. No other new symptoms. Tolerated dialysis. OBJECTIVE: Vital Signs: Blood pressure 118/56, heart rate is at 88, respirations 16, afebrile. General: No acute distress. Skin: Warm and dry. Neck: Neck veins are not visible. Heart: Regular. No gallops. Lungs: Equal. No crackles. Abdomen: Benign. Extremities: No edema, clubbing, or cyanosis. IMPRESSION: Chronic kidney disease 5D. She will have her routine hemodialysis treatment in the morning. Okay for discharge from our perspective thereafter. Electrolytes/acid base/volume status in target. Blood pressure is in target. Hemoglobin is below target, but stable. cc: Dalton Marin MD
[2019-12-30] MEDS: LIPITOR PO SCH (21:25)
[2019-12-30] MEDS: PREDNISONE PO SCH (21:25)
[2019-12-31] MEDS: TYLENOL PO PRN ×4 (02:02→23:59)
[2019-12-31] MEDS: HUMALOG SUBQ SCH ×4 (06:19→20:44)
[2019-12-31] MEDS: PRILOSEC PO SCH (06:21)
[2019-12-31] MEDS ORDERED: NS 2,000 ML MISC PRN (07:07)
[2019-12-31] MEDS ORDERED: NS 1,000 ML IV PRN (07:07)
[2019-12-31] MEDS: COZAAR PO SCH (09:00)
[2019-12-31] MEDS ORDERED: RETACRIT (ESRD PATIENTS) SUBQ ONE (09:17)
--- NOTE | 2019-12-31 09:29 | NEPHROLOGY PROGRESS NOTE ---
DATE: 12/31/2019 SUBJECTIVE: She is on room air. No shortness of breath. Tolerating her dialysis well. OBJECTIVE: Vital Signs: Blood pressure 139/74, heart rate 87, respiration 18, afebrile. General: No acute distress. Pleasant and interactive. Skin: Warm and dry. Neck: Neck veins are not distended. Heart: Regular. No gallops or murmurs. Lungs: Equal. No crackles or wheezes. Abdomen: Soft, nontender. Bowel sounds present. Extremities: Trace edema. No clubbing or cyanosis. Neurologic exam: Grossly nonfocal. IMPRESSION: 1. Chronic kidney disease 5 D. Continue her routine hemodialysis treatment using her newly- established dry weight. Okay for discharge from our perspective. 2. Electrolytes/acid base/anemia. No new data today. Hemoglobin was 9.0 yesterday. We will dose with erythropoietin times 1 today, and will follow up as an outpatient. cc: Dalton Marin MD
[2019-12-31] MEDS ORDERED: LANTUS INSULIN SUBQ ONE (10:34)
--- NOTE | 2019-12-31 12:32 | DISCHARGE SUMMARY ---
ADMISSION DATE: 12/22/2019 DISCHARGE DATE: DATE OF DISCHARGE: 12/31/2019 pending the COVID testing. DISPOSITION: [facility] rehab. FOLLOWUP: 1. Dr. Gonzalez. 2. Dr. Cade. 3. Dr. Marin. CONSULTATION DURING THIS ADMISSION: 1. Nephrology was consulted. Patient was seen by Dr. Marin. 2. ENT was consulted. Patient was seen by Dr. Perera. 3. Cardiology was consulted. Patient was seen by Dr. Cade. INVASIVE PROCEDURES DONE DURING THIS ADMISSION: None. IMAGING STUDIES OF SIGNIFICANCE: 1. A chest x-ray initially did show cardiomegaly and pulmonary edema plus/minus pneumonia. 2. A renal ultrasound shows increased renal echotexture with cortical thinning consistent with medical renal disease. 3. Multiple chest x-rays were done afterwards which showed improvement. 4. A stress test did show a normal ejection fraction of 57%, slight hypokinesis of the apex. ADMISSION DIAGNOSES: 1. Sepsis. 2. Bilateral lower lobe pneumonia. 3. Pulmonary edema with cardiomegaly. 4. Leukocytosis. 5. Suspicion of Coronavirus Disease 2019. DIAGNOSES AT THE TIME OF DISCHARGE: 1. Acute hypoxemic respiratory failure on presentation secondary to pulmonary edema with superimposed pneumonia. 2. Any-RG-exjoykqsz myocardial infarction. 3. Ischemic cardiomyopathy. 4. History of recurrent major gastrointestinal bleed requiring hemicolectomy as a result of anti- platelet therapy in the past. 5. Endstage renal disease, on hemodialysis Friday, Friday, and Friday. 6. History of ankylosing spondylosis. 7. Recurrent supraventricular tachycardia. 8. Profuse epistaxis during the hospital course due to heparin therapy treatment. 9. Sepsis on presentation, presumed to be induced by bilateral lower lobe pneumonia, resolved. Patient completed a course of antimicrobial therapy during the hospital course. 10. Normocytic anemia associated with renal disease. 11. Diabetes mellitus. DISCHARGE MEDICATIONS: 1. Folic acid 1 tab daily. 2. Glipizide XR 2.5 p.o. as ordered. 3. Furosemide 20 mg 3 times per day as needed. 4. Prednisone 10 mg p.o. daily. 5. Losartan 50 mg p.o. daily. 6. Metoprolol 50 mg b.i.d. 7. Atorvastatin 40 mg p.o. at bedtime. 8. Omeprazole 40 mg p.o. daily. PRESENTING COMPLAINT: Sudden onset of shortness of breath. HISTORY OF PRESENTING COMPLAINT: Ms Wagoner is a 74-year-old female who is known to have a history of Crohn disease, mitral prolapse, previous [place], end-stage renal disease, presented to the emergency department because of acute onset of shortness of breath, some cough, sputum production. Upon presentation, she was evaluated. Initial chest x-ray did suggests cardiomegaly and pulmonary edema plus/minus pneumonia. She was admitted to the [facility] for acute medical care. HOSPITAL COURSE: Ms Wagoner was started on broad-spectrum IV antibiotics for pneumonia treatment, was put on supplemental oxygen, and Nephrology was consulted. She did undergo her regular dialysis treatment, which improved some but then she continued having some shortness of breath. Her troponin was found to be slightly elevated on admission, but then on the 2nd day, it has been extremely elevated, so Cardiology was consulted. A stress test and echocardiogram were done. Ms Wagoner has had a significant GI bleed in the past because of anti-platelet therapy, so discussions were held by Cardiology with her as opposed to whether to go for invasive therapy or just conservative. They reached a decision where just conservative management was recommended. Medications were started by Cardiology, Throughout the hospital course, Ms. Wagoner continues to show remarkable improvement. She completed the treatment with antibiotics. Her COVID testing also came back negative. Unfortunately, a day prior to being discharged, she had SVT during dialysis, so she was observed and her carvedilol was changed to metoprolol and since then, her heart rate has been in sinus. She feels a lot better and she is stable for discharge. Unfortunately, she is going to rehab and they need a 2nd test of her COVID before is she allowed there. This test was done yesterday, we are pending the result. Once the result is negative, she can be transferred to [facility] for physical rehabilitation. CURRENT VITAL SIGNS: Blood pressure 139/74, pulse of 87, respiration is 18, temperature 97.5 degrees. PHYSICAL EXAMINATION: Unremarkable. She is clinically stable. DISCHARGE INSTRUCTIONS: 1. All the discharge instructions have been discussed with her and she voiced understanding. 2. We have also advised that she is extremely careful with the sulfonylureas since she is end- stage renal and their therapeutic effect can linger around for a very long time, so she needs to prevent hypoglycemia. TIME SPENT FOR DISCHARGE: 38 minutes. cc: Ty Davis MD
[2019-12-31] MEDS: CLARITIN PO SCH (13:14)
[2019-12-31] MEDS: TUMS PO SCH ×3 (13:15→16:49)
[2019-12-31] MEDS: NEPHRO-VITE PO SCH (13:16)
[2019-12-31] MEDS: TOPROL XL PO SCH ×2 (13:16→20:44)
[2019-12-31] MEDS: LIPITOR PO SCH (20:44)
[2020-01-01] MEDS: TYLENOL PO PRN ×3 (04:08→14:26)
[2020-01-01] MEDS: HUMALOG SUBQ SCH ×2 (06:40→12:53)
[2020-01-01] MEDS: CLARITIN PO SCH (08:38)
[2020-01-01] MEDS: NEPHRO-VITE PO SCH (08:38)
[2020-01-01] MEDS: TUMS PO SCH ×2 (08:38→12:53)
[2020-01-01] MEDS: COZAAR PO SCH (08:38)
[2020-01-01] MEDS: LASIX PO SCH (08:38)
[2020-01-01] MEDS: TOPROL XL PO SCH (08:38)
[2020-01-01] MEDS ORDERED: LANTUS INSULIN SUBQ ONE (09:00)
[2020-01-01 11:42] VITALS: BP 125/49
--- NOTE | 2020-01-01 14:36 | PROGRESS NOTE ---
DATE: 01/01/2020 SUBJECTIVE: I have seen and examined Ms. Wagoner this morning. Ms. Wagoner refers to be doing well, denies any new complaints. She was awaiting for her rehab transport. OBJECTIVE: Blood pressure is 125/49, pulse of 83, respirations 17, temperature 97.8 degrees. She is saturating 100% on room air. Physical exam is completely unremarkable and unchanged from yesterday. LABS: There was no lab work for this morning. Her glucose is 217. PLAN: All of her medications have all been reviewed. We think Ms. Wagoner is clinically stable to go to the rehab today. Please refer to the details of the discharge summary that was dictated yesterday. cc: Ty Davis MD
== END 2020-01-01 15:16 | DRG 871 ==
LOC: ED 05:21 → 2N 09:21 → SUATTDRO 09:21
PROVIDERS: ATTEND Internal Medicine

== ENCOUNTER 2020-01-06 22:30 | Observation (INO) ==
[2020-01-06] MEDS ORDERED: NS 500 ML IV ONE (22:52)
--- NOTE | 2020-01-06 22:54 | PROVIDER DOCUMENTATION ---
HPI-Chest Pain - General Chief Complaint: Palpitations Stated Complaint: HEART TROUBLES Time Seen by Provider: 01/06/20 22:33 Source: patient Allergies/Adverse Reactions: Patient Allergies Allergy/AdvReac Type Severity Reaction Status Date / Time buprenorphine HCl * Allergy Intermediate Unknown Verified 01/06/20 23:04 [From Buprenex] meperidine HCl * Allergy Intermediate Unknown Verified 01/06/20 23:04 [From Mepergan] methotrexate Allergy Intermediate Unknown Verified 01/06/20 23:04 promethazine HCl * Allergy Intermediate Unknown Verified 01/06/20 23:04 [From Mepergan] morphine Allergy Mild Unknown Verified 01/06/20 23:04 azathioprine [From Imuran] Allergy Unknown Verified 01/06/20 23:04 azathioprine sodium * Allergy Unknown Verified 01/06/20 23:04 [From Imuran] ketorolac tromethamine * Allergy Unknown Verified 01/06/20 23:04 [From Toradol] triazolam [From Halcion] AdvReac Intermediate Unknown Verified 01/06/20 23:04 Home Medications: Home Medication List Medication Instructions Recorded Confirmed Last Taken Type Sodium Polystyrene Sulfonate 15 gm PO DAILY 10/03/13 01/06/20 09/05/13 08:00 History [Kionex] Folic Acid/Vit B Complex and C 1 tab PO DAILY 12/22/19 01/06/20 Unknown History [Dialyvite Tablet] Furosemide 1 tab PO ORDERED 12/22/19 01/06/20 Unknown History Glipizide 1 tab PO Q72H 12/22/19 01/06/20 Unknown History Glipizide E.r. [Glucotrol Xl] 1 tab PO ORDERED 12/22/19 01/06/20 Unknown History Loratadine 10 mg PO DAILY 12/22/19 01/06/20 Unknown History Calcium Carbonate Chew [Tums] 1,000 mg PO TID PC 12/23/19 01/06/20 Unknown History Prednisone 10 mg PO DIRECTED 12/23/19 01/06/20 Unknown History ATORVAstatin [Lipitor] 40 mg PO QHS tab 12/31/19 01/06/20 Unknown Rx Furosemide [Lasix] 40 mg PO SuTuThSa tab 12/31/19 01/06/20 Unknown Rx Losartan [Cozaar] 50 mg PO DAILY tab 12/31/19 01/06/20 Unknown Rx Metoprolol Succinate E.r. [Toprol 50 mg PO BID tab 12/31/19 01/06/20 Unknown Rx Xl] Omeprazole [Prilosec] 40 mg PO DAILY@0700 cap 12/31/19 01/06/20 Unknown Rx - History of Present Illness-CP Nature of Presenting Problem: Patient presetns with the complaint of chest pain and heart palpitations today. She notes that sometimes after dialysis, she will have palpitations, usually due to low potassium. She states that she will drink tomato juice or eat a banana and the palpitaitons will subside, but this did not happen today. Patient with recent NSTEMI a few weeks ago. No intervention due to poor prognosis per patient. Location: reports: substernal (felt it more on the right side of her chest.) Chest Pain Radiation: reports: no radiation Quality of Pain: reports: fullness, pressure Severity in ED: moderate Onset/Duration: this morning Timing: still present, intermittent Context/Activities at Onset: reports: none Modifying Factors: improves with: palpation (had chest pain with palpitations) Associated Symptoms: reports: denies symptoms Nitro Today/Relief: no nitro taken today Aspirin Treatment Today: no aspirin today Prior Chest Pain/Cardiac Workup: reports: cardiac cath Similar Symptoms Previously?: Yes Recently Seen Here or By Another Healthcare Provider: Yes Review of Systems - Adult - REVIEW OF SYSTEMS - ADULT Constitutional: reports: no symptoms reported Eyes: reports: no symptoms reported Ears, Nose, Mouth & Throat: reports: no symptoms reported Cardiovascular: reports: no symptoms reported Respiratory: reports: no symptoms reported Gastrointestinal: reports: no symptoms reported Genitourinary: reports: no symptoms reported Musculoskeletal: reports: no symptoms reported Integumentary: reports: no symptoms reported Neurological: reports: no symptoms reported Psychiatric: reports: no symptoms reported Endocrine: reports: no symptoms reported Hematologic/Lymphatic: reports: no symptoms reported Allergic/Immunologic: reports: no symptoms reported All Other Systems: Reviewed and Negative Past History - Adult - PAST MEDICAL HISTORY-ADULT Review of Records: reports: Old Records Reviewed, Nursing Assessment Review, Medications Reviewed, Social history reviewed & non-contributory. Major Childhood Illnesses: reports: denies history Cardiovascular: reports: arrhythmia Respiratory: reports: denies history Gastrointestinal: reports: Crohn's Obstetrical/Gynecological: reports: denies history Genitourinary: reports: denies history Musculoskeletal: reports: neck/back injury Neurological: reports: denies history Endocrine/Immune: reports: Diabetes Other Conditions: reports: denies history - IMMUNIZATION STATUS Childhood Immunizations: See Nurse Assessment Flu Vaccine: See Nurse Assessment - FAMILY HISTORY Family History: reviewed, not pertinent Physical Exam-General - PHYSICAL EXAM-ADULT Initial Vital Signs Reviewed: Yes - CONSTITUTIONAL General Appearance: appears well, alert, no apparent distress - EYES Eyes: PERRL/EOMI - HEAD, EARS, NOSE, MOUTH & THROAT HENMT: normocephalic/atraumatic, moist mucous membranes - NECK Neck: non-tender, limited range of motion (history of ankylosing spondylitis affected cervical spine and hands) - RESPIRATORY Respiratory: chest non-tender, lungs clear, normal breath sounds, no pleuratic chest pain, no respiratory distress, no accessory muscle use - CARDIOVASCULAR Cardiovascular: tachycardia - GASTROINTESTINAL (ABDOMEN) Abdominal Exam: normal bowel sounds, non tender, soft - LYMPHATIC Lymphatic: no adenopathy - MUSCULOSKELETAL Back Exam: normal inspection - HEART Score HEART Score: History: Moderately Suspicious HEART Score: ECG: Non-Specific Repolarization Disturbance/LBBB/PM HEART Score: Age: > or = 65 Years HEART Score: Risk Factors for Atherosclerotic Disease: > or = 3 Risk Factors or History of Atherosclerotic Disease Progress - PLAN OF CARE/RESULTS Progress/Plan/Lab Results: Vital Signs - 8 hr 01/06/20 22:41 Temperature 98.2 F Pulse Rate 108 H Respiratory Rate 18 Blood Pressure 160/76 O2 Sat by Pulse Oximetry 96 Laboratory Results - last 24 hr 01/06/20 01/06/20 01/06/20 22:52 22:52 22:52 WBC 11.40 H RBC 3.47 L Hgb 9.5 L Hct 31.9 L MCV 91.9 MCH 27.4 MCHC 29.8 L RDW Std Deviation 17.6 H Plt Count 372 MPV 8.8 Immature Gran % (Auto) 0.5 Neut % (Auto) 76.7 H Lymph % (Auto) 11.1 L [place] % (Auto) 10.9 H Eos % (Auto) 0.4 Baso % (Auto) 0.4 Immature Gran # (Auto) 0.06 H Neut # (Auto) 8.76 H Lymph # (Auto) 1.26 [place] # (Auto) 1.24 H Eos # (Auto) 0.04 Baso # (Auto) 0.04 PT INR PTT (Actin FS) Sodium 139 Potassium 3.9 Chloride 97 L Carbon Dioxide 26 Anion Gap 16 BUN 31 H Creatinine 4.0 H Estimated GFR/1.73 m2 11 BUN/Creatinine Ratio 8 Glucose 201 H Calculated Osmolality 290 Calcium 8.7 L Total Bilirubin 0.38 AST 14 ALT 10 Alkaline Phosphatase 105 H Creatine Kinase 21 L Troponin T High Sens 149 H* Total Protein 6.8 Albumin 3.8 Globulin 3.0 Albumin/Globulin Ratio 1.3 01/06/20 22:52 WBC RBC Hgb Hct MCV MCH MCHC RDW Std Deviation Plt Count MPV Immature Gran % (Auto) Neut % (Auto) Lymph % (Auto) [place] % (Auto) Eos % (Auto) Baso % (Auto) Immature Gran # (Auto) Neut # (Auto) Lymph # (Auto) [place] # (Auto) Eos # (Auto) Baso # (Auto) PT 14.3 INR 1.09 PTT (Actin FS) 39.4 Sodium Potassium Chloride Carbon Dioxide Anion Gap BUN Creatinine Estimated GFR/1.73 m2 BUN/Creatinine Ratio Glucose Calculated Osmolality Calcium Total Bilirubin AST ALT Alkaline Phosphatase Creatine Kinase Troponin T High Sens Total Protein Albumin Globulin Albumin/Globulin Ratio Orders Category Date Time Status CHEST-2 VIEWS [RAD] Stat Exams 01/06/20 22:52 Taken CBC WITH ELECTRONIC DIFF [HEME] Stat Lab 01/06/20 22:52 Completed CK PROFILE [SP CHEM] Stat Lab 01/06/20 22:52 Completed COMPREHENSIVE METABOLIC PANEL [CHEM] Stat Lab 01/06/20 22:52 Completed PROTIME WITH INR [COAG] Stat Lab 01/06/20 22:52 Completed PTT [COAG] Stat Lab 01/06/20 22:52 Completed TROPONIN T HIGH SENSITIVITY Stat Lab 01/06/20 22:52 Completed 0.9% Sodium Chloride Inj [Ns] 500 ml Med 01/06/20 22:52 Discontinued IV Wide Open mls/hr Result Diagrams: 01/06/20 22:52 01/06/20 22:52 - REASSESSMENT Reassessment #1 Time Reassessed: 01:09 Status: improving (Patient notes that she feels better. Offered observation admission to patient, but patient states that since she feels better, she would rather return to rehab facility and do her dialysis in the morning at her usual clinic. HR 92 bpm at the time of re-assessment.) - EKG 1 Time of EKG reading by physician:: 22:56 EKG Interpretation (*Must complete 3 of following elements*): Abnormal Rate: 103 Rhythm: sinus tachycardia Addy: normal QRS: normal GA Interval: normal ST Wave: non-specific ST changes Departure - Departure Date of Disposition Decision: 01/07/20 Time of Disposition Decision: 01:12 DIAGNOSIS: Palpitations, ESRD on hemodialysis Disposition: [facility] Certified Medical Emergency: Emergent Condition: Stable Referrals and Follow-Ups: None,PCP [Primary Care Provider] - - Critical Care Note This patient required my direct & personal management of CC.: No Attestation - Physician/ JEFFERSON Attestation Patient care was provided by Advanced Practice Provider:: No The physician spent face to face time with patient:: Yes Advanced Practice Provider documentation review:: Supervising physician onsite and consulted in the evaluation and care of this patient. The physician did have a face to face encounter with the patient.
[2020-01-06 23:02] LABS: BASO# 0.04 X1000 (0.0-0.2); BASO% 0.4 % (0.0-0.8); EOS# 0.04 X1000 (0.0-0.7); EOS% 0.4 % (0.0-10.0); HEMATOCRIT 31.9 % (37.0-47.0); HEMOGLOBIN 9.5 g/dL (12.0-16.0); IMM GRAN# 0.06 X1000 (0.0-0.04); IMM GRAN% 0.5 % (0.0-0.5); LYMPH# 1.26 X1000 (1.2-3.4); LYMPH% 11.1 % (20.5-51.1); MCH 27.4 PG (27-31); MCHC 29.8 g/dL (33-37); MCV 91.9 FL (81-99); MONO# 1.24 X1000 (0.11-0.59); MONO% 10.9 % (1.7-9.3); MPV 8.8 FL (7.4-10.4); NEUT# 8.76 X1000 (1.4-6.5); NEUT% 76.7 % (42.2-75.2); PLT 372 X1000 (130-400); RBC 3.47 XMIL (4.2-5.4); RDW 17.6 % (11.5-14.5)
[2020-01-06 23:13] LABS: INR 1.09; PROTIME 14.3 Seconds (11.0-16.0)
[2020-01-06 23:14] LABS: PTT 39.4 Seconds (22.3-41.8)
[2020-01-06 23:29] LABS: ALB/GLOB RATIO 1.3; ALBUMIN 3.8 g/dL (3.5-5.0); CALCIUM 8.7 mg/dL (8.8-10.2); POTASSIUM 3.9 mmol/L (3.5-5.1); TOTAL BILIRUBIN 0.38 mg/dL (0.20-1.00); TOTAL PROTEIN 6.8 g/dL (6.3-8.3)
[2020-01-07] MEDS ORDERED: TYLENOL PO ONE (01:38)
[2020-01-07] MEDS ORDERED: TYLENOL ONE (01:43)
[2020-01-07] MEDS ORDERED: GLUCOTROL PO SCH (03:15)
[2020-01-07] MEDS ORDERED: LASIX PO SCH (03:15)
[2020-01-07] MEDS ORDERED: ZOFRAN IV PRN (04:13)
[2020-01-07] MEDS ORDERED: TYLENOL PO PRN ×2 (04:13→08:50)
[2020-01-07 06:36] LABS: CALCIUM 8.9 mg/dL (8.8-10.2); CREATININE 4.3 mg/dL (0.5-0.9); POTASSIUM 4.6 mmol/L (3.5-5.1)
[2020-01-07] MEDS: HUMALOG SUBQ SCH ×3 (06:36→17:02)
--- NOTE | 2020-01-07 06:40 | Diag Imaging Result Doc PS360 ---
EXAM: CHEST-2 VIEWS HISTORY: palpitations TECHNIQUE: Two views COMPARISON: 12/28/2019 FINDINGS: The lungs are well expanded. The heart is not enlarged. There are infiltrates and atelectasis in the left lower lobe with small left pleural effusion. Mild vascular distention. Severe atherosclerosis. Calcified left hilar lymph nodes. Long-standing shoulder arthritis. IMPRESSION: Mild interval worsening. Electronically signed by Emir Cho 01/07/2020 6:38 AM
[2020-01-07] MEDS ORDERED: PRILOSEC PO SCH (07:00)
--- NOTE | 2020-01-07 07:08 | EKG Report ---
Test Performed on : 01/06/2020 10:54:10 PM Test Reason : ED. NO EKG ORDER FOR MUSE Blood Pressure : / mmHG Vent. Rate : 103 BPM Atrial Rate : 103 BPM P-R Int : 162 ms QRS Dur : 096 ms QT Int : 392 ms P-R-T Axes : 051 016 215 degrees QTc Int : 513 ms Sinus tachycardia. Left ventricular hypertrophy with repolarization abnormality Abnormal ECG When compared with ECG of 30-DEC-2019 07:14, No significant change was found Unconfirmed Result
[2020-01-07 07:16] LABS: HEMOGLOBIN A1C 6.5 % (4.8-6.0)
--- NOTE | 2020-01-07 07:52 | HISTORY AND PHYSICAL ---
CHIEF COMPLAINT: Chest pain, rapid heart rate. HISTORY OF PRESENT ILLNESS: This is a 74-year-old female who was discharged on 12/31/2019. She was in with a non-Q wave DC. She sees Dr. Andrzej Gonzalez outpatient. She has a history of Crohn's disease, diabetes mellitus Type 2, mitral valve prolapse with DC, anemia, end-stage renal disease with hemodialysis Friday, Friday and Friday. She stated that after her dialysis she sometimes becomes tachycardic. It is usually related to her potassium. She waited until she had a second spell yesterday before coming into the emergency room. When she was in the hospital with the DC, they changed her beta lori from I believe she said Coreg to metoprolol. She has tendency to have hypotension and sometimes she is unable to take her nighttime dosage. Originally, she was taking 50 mg twice a day. That was decreased to 25 mg twice a day; and from what I understand, sometimes she still is not being given the evening dose. It is possible that the increased SVT is related to this. She came from [facility] rehab. There was no real way to monitor her palpitations, so the patient felt uncomfortable going back after being worked up in the emergency room. She was told that she was a poor surgical candidate from what I understand. She was offered a heart cath I believe, but she deferred. At any rate she will be observed for further evaluation and treatment. PAST MEDICAL HISTORY: See HPI. PREVIOUS SURGICAL HISTORY: Cholecystectomy, total hip, bilateral tubal ligation, colon resection, carpal tunnel release, cataract surgery. SOCIAL HISTORY: She came from rehab. No tobacco, alcohol or illicit drugs. I believe she lives alone. FAMILY HISTORY: Positive for coronary artery disease. ALLERGIES: Buprenex, meperidine, methotrexate, Phenergan, morphine, Imuran, Toradol and Halcion. HOME MEDICATIONS: Lipitor 40 mg p.o. daily, Tums 1000 mg p.o. t.i.d., Folic acid/Vitamin B complex and C daily, furosemide 20 mg p.o. Friday, and Friday, glipizide 5 mg p.o. a 72 hours, Glucotrol XL 2.5 mg as ordered, loratadine 10 mg p.o. daily, losartan 50 mg p.o. daily, metoprolol 50 mg p.o. b.i.d., omeprazole 40 mg p.o. daily, prednisone 10 mg p.o. as directed, Kionex 15 grams p.o. daily. REVIEW OF SYSTEMS: A 14-point review of systems conducted with the patient. Pertinent positives as listed above in the HPI. All other systems reviewed and found to be negative. PHYSICAL EXAMINATION: VITAL SIGNS: Temperature 94, pulse 91, respirations 17, blood pressure 138/59, oxygen saturation 95% on room air. GENERAL: A pleasant 74-year-old female lying on the ER stretcher. She answers all questions appropriately. She is alert and oriented times 3. HEENT: Head is atraumatic, normocephalic. Pupils equal, round, react to light. Extraocular eye movement is intact. Sclera is anicteric. Conjunctiva is pink. Oral mucosa is moist. NECK: Kyphotic related to previous surgical intervention I believe. No JVD. Trachea is midline. CARDIAC: S1, S2 appreciated. No murmurs, gallops or rubs. LUNGS: Clear to auscultation bilaterally. No rhonchi, wheezes, rales. Symmetric rise and fall with respirations. ABDOMEN: Soft, nondistended, nontender. Bowel sounds present in all 4 quadrants and normoactive. No pulsatile mass. No organomegaly. EXTREMITIES: Trace edema bilateral lower extremities. Right upper extremity has AV fistula with good thrill and bruit. NEUROLOGICAL: She is alert and oriented times 3. Cranial nerves II through XII grossly intact. LABORATORY DATA: WBC 11.40, hemoglobin 9.5, hematocrit 31.9, platelet count 372,000, sodium 139, potassium 3.9, chloride 97, carbon dioxide 26, BUN 31, creatinine 4, glucose 201, troponin 149, however, this is greatly decreased from last admission. ASSESSMENT: 1. Chest pain, rule out acute myocardial infarction. 2. End-stage renal disease with Friday, Friday and Friday hemodialysis. 3. Sinus tachycardia. 4. Hypertension. 5. Coronary artery disease. 6. Hyperlipidemia. PLAN: Admit the patient to [facility] and observation status. Continue to monitor. She is chest pain free. Trend cardiac enzymes. Will consult cardiology to help with her medications to see if we can bring her tachycardia under control. Consult Dr. Marin. The patient will need her regular dialysis treatment today. At this time will continue metoprolol 50 mg p.o. b.i.d. as her blood pressure is within normal limits and she is still borderline tachycardic. Will defer dosage to cardiology. Further recommendations based on the patient's clinical course. Dictated by TRESA Rudolph for Kit Abdalla MD I have performed a face to face diagnostic evaluation. Labs/Xrays- reviwed. Exam- Chest -clear, CV- regular. A/P- Chest Pain- Admit, Cardiac work up, trend troponins, Cardiology consult. Dr. Abdalla cc: TRESA Rudolph MD [facility]
[2020-01-07] MEDS: TUMS PO SCH ×4 (08:36→17:01)
[2020-01-07] MEDS ORDERED: NS 2,000 ML MISC PRN (08:50)
[2020-01-07] MEDS ORDERED: NS 1,000 ML IV PRN (08:50)
[2020-01-07] MEDS ORDERED: KAYEXALATE PO SCH (09:00)
[2020-01-07] MEDS ORDERED: TOPROL XL PO SCH (09:00)
[2020-01-07] MEDS ORDERED: CLARITIN PO SCH (09:00)
[2020-01-07] MEDS ORDERED: NEPHRO-VITE PO SCH (09:00)
[2020-01-07] MEDS ORDERED: COZAAR PO SCH (09:00)
[2020-01-07 12:04] LABS: URINE SOURCE CLEAN CATCH
[2020-01-07 12:11] LABS: BILIRUBIN URINE NEGATIVE (NEGATIVE); BLOOD URINE LARGE (NEGATIVE); COLOR ORANGE; GLUCOSE URINE 500 mg/dL (NEGATIVE); KETONE URINE NEGATIVE (NEGATIVE); LEUKOCYTES URINE NEGATIVE (NEGATIVE); NITRITE URINE NEGATIVE (NEGATIVE); PH URINE 7.5; PROTEIN URINE 70 mg/dL (NEGATIVE); SP GRAVITY URINE 1.007; TURBIDITY URINE HAZY (CLEAR); UROBILINOGEN URINE NORMAL (NORMAL)
[2020-01-07 12:12] LABS: UR EPITHELIAL CELLS <10 /HPF (<10); URINE BACTERIA NEGATIVE /HPF; URINE RBC TNTC /HPF (<10); URINE WBC <10 /HPF (<10)
--- NOTE | 2020-01-07 12:45 | CONSULTATION ---
DATE OF CONSULTATION: 01/07/2020 IMPRESSION: 1. Recurrent SVT likely precipitated recurrent chest discomfort. 2. Atherosclerotic coronary disease. A) Status post previous coronary angioplasty/stenting in the past several years ago. Patient had difficulty tolerating dual antiplatelet therapy due to lower GI blood loss at that time. B) Recently hospitalized with non ST elevation myocardial infarction with troponin high sensitivity up to around 2000 and significant wall motion abnormality transiently in distribution of left anterior descending coronary. The patient preferred maximal medical therapy over pursuit of cardiac catheterization/coronary angiography and possible revascularization given her difficulty tolerating dual antiplatelet therapy and multiple comorbidities. 3. End-stage renal disease requiring chronic hemodialysis. 4. Chronic recurrent tendency for rectal bleeding which has been aggravated by efforts to use dual antiplatelet therapy in the past as well as anticoagulation. 5. Type 2 diabetes mellitus. 6. Ankylosing spondylitis. Patient is status post neck fusion. 7. Crohn's disease. 8. Hyperlipidemia. RECOMMENDATIONS: 1. Favor increasing metoprolol back to 50 mg p.o. twice daily and reducing if not discontinuing losartan in order to facilitate continued use of metoprolol. 2. Management of coronary atherosclerosis again discussed with her at length. She reiterates her preference for conservative/medical therapy. She also expresses desire to return to [facility] shelter facility as soon as possible. 3. If patient has persistent recurrent SVT, consideration may be given to initiation of amiodarone. 4. Continue low-dose aspirin q.72 hours as tolerated. 5. Continue atorvastatin as tolerated. HISTORY: This 74-year-old white female with past history of atherosclerotic coronary disease, previous coronary angioplasty/stenting several years ago, tendency for lower GI blood loss aggravated by dual antiplatelet therapy and efforts to anticoagulate, SVT, end-stage renal disease requiring chronic hemodialysis, Crohn's disease, cervical spine disease with previous cervical spine fusion and type 2 diabetes mellitus was admitted through the emergency room with recurrent episode of tachy palpitations and associated chest discomfort. She is suspected of having recurrent SVT and associated angina. She was just recently hospitalized here for chest symptoms as well as palpitations. Echocardiography demonstrated anteroapical wall motion abnormality and reduced left ventricular systolic function. Patient's high sensitivity troponin zoila to around 2000. Resting perfusion study however demonstrated viability pretty much throughout the left ventricle including the LAD distribution. Given her comorbidities and tendency for lower GI blood loss, she opted for medical management and preferred to forego invasive evaluation. She was started on metoprolol 50 mg twice daily as carvedilol was stopped. Efforts to utilize aspirin and taper use of subcutaneous heparin resulted in significant nosebleed. Subcutaneous heparin was discontinued and aspirin was curtailed to 81 mg every 72 hours. She had stabilization of her nosebleed with compression and local packing after ENT consultation. She was discharged to shelter facility at [facility]. She lives near [place] and family lives in [place] as well. She had some recent problems with low blood pressure on hemodialysis. Metoprolol dose was reduced to 25 mg twice daily. Last night she developed tachy palpitations and subsequent developed some chest discomfort which she localizes to the right upper parasternal region and characterizes it as a throbbing discomfort. She was found to have tachycardia. EMS was summoned and she was brought by ambulance to the emergency room. In route her tachy palpitations resolved and her chest discomfort resolved. She was subsequently admitted for observation and further care. She has not had any further chest discomfort or palpitations. She has been in sinus rhythm on her ECGs. She reiterates her preference for conservative/medical therapy of her coronary disease when this was discussed. She expresses also a preference to get back to [facility] as soon as possible. PAST MEDICAL HISTORY: 1. Atherosclerotic coronary disease as outlined above. 2. End-stage renal disease requiring chronic hemodialysis 3 times a week. 3. Chronic recurrent tendency for rectal bleeding aggravated by dual antiplatelet therapy in the past. 4. Crohn's disease. 5. Ankylosing spondylitis. 6. Type 2 diabetes mellitus. 7. Anemia. 8. Paroxysmal SVT. PAST SURGICAL HISTORY: Includes cholecystectomy, hip replacement, bilateral tubal ligation, colon resection, carpal tunnel release, cervical spine fusion and cataract surgery. ALLERGIES: She has multiple drug allergies listed. She has had difficulty tolerating Plavix in the past due to tendency for rectal bleeding. MEDICATIONS PRIOR TO ADMISSION: As listed. SOCIAL HISTORY: She does not smoke or use alcohol. FAMILY HISTORY: Positive for coronary disease. REVIEW OF SYSTEMS: Pulmonary: Noncontributory beyond history of present illness. Gastrointestinal: Noncontributory beyond history present illness. Constitutional: Noncontributory beyond history of present illness. Remainder of review of systems negative/noncontributory beyond history of present illness with 14 total systems reviewed. PHYSICAL EXAMINATION: General: This is a pleasant, older white female in no distress on room air. Vital signs: Blood pressure 144/52, heart rate 88, oxygen saturation 95% on room air. HEENT: Extraocular movements intact. Mucous membranes moist. Neck: Supple without jugular venous distention. There are no carotid bruits. Chest: Clear to auscultation bilaterally. Cardiac Exam: Reveals a regular rate and rhythm without appreciable murmur or gallop. Abdomen: Soft. Bowel sounds are normal. Extremities: Without edema. Neurologic: Alert and fully oriented. Speech is fluent. She moves all 4 extremities equally well. PERTINENT DATA: Twelve lead EKG demonstrates sinus tachycardia at 102 beats per minute. Left hypertrophy with repolarization abnormality and somewhat more prominent T-wave inversion anterolaterally, consider anterolateral ischemia. LABORATORY DATA: Includes a sodium 139, potassium 4.6 chloride 97, carbon dioxide 25, BUN 34 creatinine 4.3, glucose 257. Initial troponin T 149 with follow-up troponin T 153. White blood cell count 9.4, hematocrit 31.9, hemoglobin 9.5, platelet count 370,000. cc: Sheldon Lee MD
--- NOTE | 2020-01-07 14:07 | DISCHARGE SUMMARY ---
ADMISSION DATE: 01/07/2020 DISCHARGE DATE: DISCHARGE DIAGNOSES: 1. Chest pain related to supraventricular tachycardia. 2. Supraventricular tachycardia. 3. End-stage renal. HISTORY AND HOSPITAL COURSE: Patient came in from rehab [facility] with chest pain. She had some tachycardia which she has had issues with in the past. She was admitted and placed in observation, but she says her chest pain resolved once her tachycardia resolved. She has had a non STEMI, mitral valve prolapse. She was on 50 b.i.d. but then it was decreased to 25 b.i.d., although her discharge dose was 50 b.i.d. In any case, EKG here just showed sinus tachycardia with a rate in 103. Cardiology was consulted. They recommended increasing metoprolol back to 50 b.i.d., although her discharge list says she is already on 50 b.i.d., but in any case, she does not want any aggressive cardiac workup. She has a non-STEMI and she has refused other treatment. They also considered amiodarone. She is on aspirin q.72 hours. She is on atorvastatin. She was dialyzed here as well. Her saturation is 93 to 95 percent on room air. Blood pressure is stable, afebrile. She will be discharged back to [facility] this afternoon after completing dialysis. DISCHARGE MEDICATIONS: Folic acid, vitamin B complex, Lasix 20 mg on days without dialysis, glipizide 1 p.o. q.72 hours before dialysis and 2.5 glipizide XL on days of dialysis. She is on Kionex or looks like Kayexalate essentially 15 daily, loratadine 10 daily, prednisone 10 the night before dialysis Friday, Friday, . Tums 1000 mg 1 p.o. t.i.d., Lipitor 40, Lasix 40 Friday, Friday, , Friday. Prilosec 40 and Toprol-XL 50 b.i.d. DISCHARGE CONDITION: Stable TIME SPENT: A 32 minute discharge. Her troponins are mildly elevated, but she has renal insufficiency. She did have a little bit hematuria, but no discomfort. cc: Jr Santana MD
[2020-01-07 16:49] VITALS: BP 146/59
[2020-01-07] MEDS ORDERED: LIPITOR PO SCH (21:00)
[2020-01-08] MEDS ORDERED: LASIX PO SCH (09:00)
[2020-01-08] MEDS ORDERED: GLUCOTROL XL PO SCH (09:00)
[2020-01-09] MEDS ORDERED: PREDNISONE PO SCH (21:00)
--- NOTE | 2020-01-10 04:07 | NEPHROLOGY CONSULTATION ---
DATE: 01/07/2020 SUBJECTIVE: She was again admitted with SVT. I had a direct conversation with Dr. Lee to discuss the plan. She has suffered several episodes and ultimately was sent to the emergency room by the physician (Dr. Holly) at [facility]. Her symptoms resolved as soon as that the SVT resolved, but she does have chest discomfort or tightness, especially on the right while she has palpitations. OBJECTIVE: Vital Signs: Blood pressure 144/52, heart rate 88, respirations 14, afebrile. General: No acute distress. Skin: Warm and dry. Neck: Neck veins are not distended. Heart: Regular. Lungs: Equal. No crackles. Abdomen: Soft, nontender. Normal bowel sounds. Extremities: No edema. IMPRESSION AND PLAN: 1. Chronic kidney disease 5D. She will have her routine hemodialysis treatment today. 2. Supraventricular tachycardia. Appreciate Dr. Lee's input. Okay for discharge from my perspective. cc: Dalton Marin MD
== END 2020-01-07 17:50 ==
LOC: ED 22:30 → 2N 22:30 → SUATTDRO 01-07 04:10
PROVIDERS: ATTEND Internal Medicine